=== PATIENT | male | born 1950 | race Caucasian/White ===

== ENCOUNTER 2017-05-27 10:24 | Inpatient (IN) | payer OTHER, MEDICARE ==
[~2017-05-27] VITALS: Ht 175.3 cm; Wt 91.9 kg
[2017-05-27] VITALS (7 sets, daily range): BP systolic 140–202; BP diastolic 85–106; PULSE 64–84; RESP 14–16; TEMP 97.7–99.4; O2SAT 97–100
[~2017-05-27 10:24] MED LIST: CLON.5; HYDR-3133; LACTATED RINGER'S 1000 ML INJ 3,000 ML IV ONE; NEOSTIGMINE 3 MG/3 ML SYR IV ONE; NORMOSOL R INJ 1,000 ML IV ONE; ONDANSETRON HCL 4 MG/2 ML VIAL IV PUSH ONE; PHENYLEPH/NS 1000 MCG/10 ML SYR IV ONE; PROPOFOL 200 MG/20 ML AMP IV ONE; TAB-TAB; WELL150T; ePHEDrine/NS 25 MG/5 ML SYR IV ONE
[2017-05-27] MEDS ORDERED: WELLTAB39 PO (10:49)
[2017-05-27] MEDS ORDERED: TIZA2CAP3 PO (10:49)
[2017-05-27] MEDS ORDERED: CLON.5 PO (10:49)
[2017-05-27] MEDS ORDERED: LISI2.5T3 PO (10:49)
[2017-05-27] MEDS ORDERED: ADDE25CA PO (10:49)
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
[2017-05-27] MEDS ORDERED: HYDROmorphone HCL PF 1 MG/ML VIAL IVS ONE (11:30)
[2017-05-27] MEDS ORDERED: ONDANSETRON HCL 4 MG/2 ML VIAL IVP ONE (11:30)
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
[2017-05-27 11:34] LABS: AUTOMATED NEUTROPHIL # 9.1 TH/MM3 (1.8-7.7); BASOPHIL # 0.1 TH/MM3 (0-0.2); BASOPHIL % 0.9 % (0.0-2.0); EOSINOPHIL # 0.2 TH/MM3 (0-0.4); HEMATOCRIT 42.3 % (39.0-51.0); HEMO FLAGS DIFF FINAL; LYMPH % 15.6 % (9.0-44.0); LYMPHOCYTE # 1.9 TH/MM3 (1.0-4.8); MEAN CELL VOLUME 93.4 FL (80.0-100.0); MEAN CORPUSCULAR HEMOGLOBIN 31.8 PG (27.0-34.0); NEUT % 74.5 % (16.0-70.0); PLATELET COUNT 218 TH/MM3 (150-450); RED BLOOD COUNT 4.52 MIL/MM3 (4.50-5.90); RED CELL DISTRIBUTION WIDTH 13.2 % (11.6-17.2); WHITE BLOOD COUNT 12.2 TH/MM3 (4.0-11.0)
[2017-05-27 11:56] LABS: BICARBONATE 25.5 MEQ/L (21.0-32.0); POTASSIUM 3.7 MEQ/L (3.5-5.1)
[2017-05-27] MEDS ORDERED: PHENYLEPHRINE HCL 10 MG/ML VIAL IV ONE (12:00)
[2017-05-27] MEDS ORDERED: NEOSTIGMINE 3 MG/3 ML SYR IV ONE (12:00)
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
[2017-05-27] MEDS ORDERED: THROMBIN (TOPICAL) 5,000 UNIT VIAL ONE (14:29)
[2017-05-27] MEDS ORDERED: MAGNESIUM HYDROXIDE SUSP 30 ML CUP PO PRN (14:30)
[2017-05-27] MEDS ORDERED: LIDOCAINE 1%/EPINEPHrine 1:100,000 SOLN 20 ML VIAL ONE (14:30)
[2017-05-27] MEDS ORDERED: GELFOAM SIZE 100 ONE (14:30)
[2017-05-27] MEDS ORDERED: CHLORHEXIDINE GLUCONATE 2 % 1 PACK (2 CLOTHS) TOP PRN ×2 (14:30→21:45)
[2017-05-27] MEDS ORDERED: GENTAMICIN SULFATE 80 MG/2 ML VIAL ONE (14:30)
[2017-05-27] MEDS ORDERED: PANTOPRAZOLE SODIUM 40 MG VIAL IV SCH (14:30)
[2017-05-27] MEDS ORDERED: MISCELLANEOUS NURSING INFORMATION XX SCH ×2 (14:30→21:45)
[2017-05-27] MEDS ORDERED: FAMOTIDINE 20 MG/2 ML VIAL ONE (14:44)
[2017-05-27] MEDS ORDERED: IOHEXOL 350 MG/ML 10 ML VIAL (for RAD DIAG) IV ONE (14:56)
[2017-05-27] MEDS ORDERED: ACETAMINOPHEN 1000 MG/100 ML VIAL IV ONE (15:00)
[2017-05-27] MEDS ORDERED: DEXAMETHASONE SOD PHOS 4 MG/ML VIAL ONE (15:00)
[2017-05-27] MEDS ORDERED: ARTIFICIAL TEARS OPTH OINT 3.5 APPLIC/3.5 GM TUBO ONE (15:00)
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
[2017-05-27] MEDS ORDERED: ceFAZolin INJ 1,000 MG VIAL IV ONE (16:50)
[2017-05-27] MEDS ORDERED: fentaNYL CITRATE 250 MCG/5 ML AMP ONE ×2 (17:03→17:07)
[2017-05-27] MEDS ORDERED: MIDAZOLAM HCL 2 MG/2 ML VIAL ONE (17:06)
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
[2017-05-27] MEDS: SODIUM CHLOR 0.9% 1000 ML INJ 1,000 ML IV SCH (20:20)
[2017-05-27] MEDS: PANTOPRAZOLE SODIUM 40 MG VIAL IV SCH (20:20)
--- NOTE | 2017-05-27 20:39 | PD.OP ---
Operative Report Date of Surgery: May 27, 2017 Preoperative Diagnosis: (1) Traumatic dislocation of facet joint between fifth and sixth cervical vertebrae (2) UNSP INJURY AT C6 LEVEL OF CERVICAL SPINAL CORD, INIT ENCNTR 1. Traumatic subluxation C5-C6 level 2. Left C5-6 jumped facet 3. Cervical cord contusion with quadriparesis Postoperative Diagnosis: (1) Traumatic dislocation of facet joint between fifth and sixth cervical vertebrae (2) UNSP INJURY AT C6 LEVEL OF CERVICAL SPINAL CORD, INIT ENCNTR 1. Traumatic subluxation C5-C6 level 2. Left C5-6 jumped facet 3. Cervical cord contusion with quadriparesis Procedure: 1. C5-6 anterior cervical discectomy, bilateral foraminotomy 2. Intraoperative reduction C5 6 subluxation with unilateral left C5 6 locked facet 3. C5-6 anterior interbody fusion with composite allograft bone 4. C5-6 anterior cervical instrumentation 5. Use of intraoperative fluoroscopy for intraoperative reduction C5 6 subluxation Anesthesia: Gen. Surgeon: Balaji Topete Light Bulb Assembler(s): Kane Amaya Operation and Findings: Findings: Total disruption of these anterior and posterior C5-6 longitudinal ligament. Extensive anterior cervical osteophyte. Procedure in detail: The patient was brought into the operating room and positioned in supine position on the 3080 table with the head and neck in neutral position. Rowland catheter was placed. Lines were established by Anesthesia. Gen. endotracheal anesthesia was induced without difficulty, taking care not to significantly flex or extend the patient's neck during intubation and positioning. Leads for intraoperative neuro monitoring were placed and a baseline study obtained. All extremities were appropriately padded. The neck and upper chest were shaved with clippers and sterilely prepped and draped. Appropriate timeout procedure was performed with all personnel present and in agreement 1% Xylocaine with epinephrine was used for local infiltration over the incision site which was made transversely at the left C5-6 level and carried sharply down through the platysma muscle. The exposure was continued medial to the sternocleidomastoid muscle and carotid artery, and lateral to the trachea and esophagus. The prevertebral fascia was elevated away from the anterior longitudinal ligament with a Kitner sponge. The longus coli muscle on each side was elevated with the Watson elevator. The self-retaining retractor was placed with the blades beneath the longus coli muscle on each side. The appropriate levels were confirmed with intraoperative C-arm and preoperative imaging studies. The microscope was brought into place and used for the remainder of the procedure including the closure. The 14 mm distraction pins were used as needed for gentle distraction during the procedure. The procedure was performed at the C5-6 level At C5-6 level the large anterior osteophyte was resected with the Leksell rongeur and TPS drill with the M8 bur. The disc and annulus anteriorly were totally torn and disrupted The disc and annulus was incised with a 15 blade knife and discectomy performed with pituitary biopsy forceps and straight and angled curettes. The TPS drill with the 5 mm barrel bur was used to decorticate the endplates and removed the majority of the osteophyte along the anterior spinal canal as well as the right and left uncovertebral joint. Next the undersigned reduced the left C5-6 locked facet using intraoperative C- arm and fluoroscopy imaging, with distraction and anterior and left lateral flexion initially applied to unlock the facet followed by rotation to the left and mild extension with subsequent release of tension. The locked facet reduced without difficulty. Attention was then turned back to the decompression portion of the procedure. The thin ligament dissector was used to free up the torn posterior annulus and ligament from the vertebral body margin. The annulus and ligament were resected with the thin footplate Kerrison rongeur. Significant posterior osteophyte was encountered and extensively removed. The posterior vertebral bodies were undercut with the Kerrison rongeur and the TPS drill with the 4 mm deanne bur as needed to fully decompress the anterior spinal canal. The appropriate size 7 x 9 mm V G2 bone graft was then placed at the C5-6 level with a good fit of the graft. The blunt nerve hook was used to probe beneath the bone graft to ensure that there was no impingement on the thecal sac or exiting nerve roots. The appropriate size Precision anterior cervical plate was then chosen and the bone screws were placed with the 16 mm fixed screws at the caudal most level and the 16 mm variable screws at the cephalad level of the decompression. The screws were firmly secured and the locking cams engaged. The entire construct was checked with intraoperative C-arm and felt to be satisfactory. The 10 Hebrew drain was brought out through a small incision in the left lower neck and secured to the skin with nylon suture and attached to sterile suction. The closure was performed with 3-0 Vicryl running for the platysma and interrupted for the subcutaneous closure, with 4-0 Vicryl running for the subcuticular closure. A dressing of sterile Mastisol, Steri-Strips, and Primapore dressing was placed. The patient was placed into a cervical collar, and taken to recovery room in stable condition. All counts were correct at the end of the case. Estimated blood loss was 200 No specimen was sent to pathology. Intraoperative neuro monitoring remained stable during the procedure. Balaji Topete MD May 27, 2017 20:39
[2017-05-27] MEDS ORDERED: DO NOT ADM ANY ANTICOAGULANT DRUGS PRN (20:45)
[2017-05-27] MEDS: DOCUSATE SODIUM 50 MG/SENNA 8.6 MG TAB PO SCH (21:00)
[2017-05-27] MEDS ORDERED: hydrALAZINE HCL 20 MG/ML VIAL ONE (21:02)
[2017-05-27] MEDS ORDERED: LABETALOL HCL 100 MG/20 ML VIAL IV PUSH ONE (21:30)
[2017-05-27] MEDS ORDERED: hydrALAZINE HCL 20 MG/ML VIAL IV PUSH PRN (21:30)
[2017-05-27] MEDS ORDERED: LABETALOL HCL 100 MG/20 ML VIAL IV PUSH PRN (21:30)
[2017-05-27] MEDS ORDERED: hydrALAZINE HCL 20 MG/ML VIAL IV PUSH ONE (21:30)
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
[2017-05-27] MEDS ORDERED: RESP: ALBUTEROL 2.5 MG/3 ML NEB (PRN) INH (21:45)
[2017-05-27] MEDS ORDERED: CLEVIDIPINE INJ 50 ML IV SCH (21:45)
[2017-05-27] MEDS ORDERED: ACETAMINOPHEN 325 MG TAB PO PRN (21:45)
[2017-05-27] MEDS ORDERED: ONDANSETRON HCL 4 MG/2 ML VIAL IV PRN (21:45)
[2017-05-27] MEDS ORDERED: SODIUM CHLORIDE 0.9% FLUSH 10 ML FLUSH IV FLUSH PRN (21:45)
[2017-05-27] MEDS: ACETAMINOPHEN/HYDROcodone 325 MG/5 MG TAB PO PRN (23:48)
[2017-05-28] VITALS (11 sets, daily range): BP systolic 139–176; BP diastolic 53–83; PULSE 65–74; RESP 10–19; TEMP 98.2–99.3; O2SAT 96–100
[2017-05-28] MEDS: MORPHINE SULFATE 4 MG/ML INJ IV PRN ×6 (00:42→18:00)
[2017-05-28] MEDS: SODIUM CHLOR 0.9% 1000 ML INJ 1,000 ML IV SCH ×3 (00:43→20:27)
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
[2017-05-28] MEDS: LABETALOL HCL 100 MG/20 ML VIAL IV PUSH PRN ×6 (03:00→23:32)
[2017-05-28] MEDS: CHLORHEXIDINE GLUCONATE 2 % 1 PACK (2 CLOTHS) TOP SCH ×2 (03:28)
[2017-05-28 04:22] LABS: AUTOMATED NEUTROPHIL # 12.1 TH/MM3 (1.8-7.7); BASOPHIL % 0.1 % (0.0-2.0); HEMATOCRIT 38.8 % (39.0-51.0); HEMO FLAGS DIFF FINAL; LYMPHOCYTE # 0.8 TH/MM3 (1.0-4.8); MEAN CELL VOLUME 95.1 FL (80.0-100.0); MEAN CORPUSCULAR HEMOGLOBIN 32.1 PG (27.0-34.0); MEAN CORPUSCULAR HGB CONC 33.7 % (32.0-36.0); MONO % 5.7 % (0.0-8.0); NEUT % 88.2 % (16.0-70.0); PLATELET COUNT 183 TH/MM3 (150-450); RED BLOOD COUNT 4.08 MIL/MM3 (4.50-5.90); RED CELL DISTRIBUTION WIDTH 13.5 % (11.6-17.2); WHITE BLOOD COUNT 13.8 TH/MM3 (4.0-11.0)
[2017-05-28 04:47] LABS: ANION GAP 10 MEQ/L (5-15); AST (GOT) 34 U/L (15-37); BICARBONATE 23.5 MEQ/L (21.0-32.0); BLOOD UREA NITROGEN 17 MG/DL (7-18); CHLORIDE 107 MEQ/L (98-107); GLOMERULAR FILTRATION RATE 63 ML/MIN (>89); MAGNESIUM 1.9 MG/DL (1.5-2.5); SODIUM (NA) 140 MEQ/L (136-145)
[2017-05-28 04:53] LABS: ALKALINE PHOSPHATASE 58 U/L (45-117); ALT (GPT) 28 U/L (12-78); TOTAL BILIRUBIN ADULT 0.7 MG/DL (0.2-1.0)
--- NOTE | 2017-05-28 04:57 | RADRPT ---
EXAM DATE/TIME: 05/28/2017 04:46 [place] COMPARISON: CT BRAIN W/O CONTRAST, May 27, 2017, 11:19. INDICATIONS : Follow-up hemorrhage. RADIATION DOSE: 44.16 CTDIvol (mGy) MEDICAL HISTORY : Hypertension. SURGICAL HISTORY : TURP. ENCOUNTER: Subsequent ACUITY: 1 day PAIN SCALE: Non-responsive LOCATION: cranial TECHNIQUE: Multiple contiguous axial images were obtained of the head. Using automated exposure control and adj ustment of the mA and/or kV according to patient size, radiation dose was kept as low as reasonably a chievable to obtain optimal diagnostic quality images. DICOM format image data is available electro nically for review and comparison. FINDINGS: There is mild atrophy and patchy periventricular white matter disease again noted. There is a small p arenchymal bleed in the right frontal periventricular white matter with trace surrounding edema again noted. There are no fractures or acute infarct. No masses. CONCLUSION: No significant change has occurred. Amos Rubio MD on May 28, 2017 at 4:54 Board Certified Radiologist. This report was verified electronically.
[2017-05-28] MEDS ORDERED: MAGNESIUM SULFATE 1 GM PREMIX 100 ML IV ONE (05:15)
[2017-05-28] MEDS: hydrALAZINE HCL 20 MG/ML VIAL IV PUSH PRN ×7 (05:49→22:30)
[2017-05-28] MEDS: ONDANSETRON HCL 4 MG/2 ML VIAL IV PRN ×4 (06:09→20:27)
[2017-05-28] MEDS: DOCUSATE SODIUM 50 MG/SENNA 8.6 MG TAB PO SCH ×2 (08:29→20:26)
[2017-05-28] MEDS: PANTOPRAZOLE SODIUM 40 MG VIAL IV SCH (08:30)
[2017-05-28] MEDS: buPROPion HCL 150 MG EXTENDED RELEASE TAB PO SCH (08:52)
[2017-05-28] MEDS ORDERED: PANTOPRAZOLE SODIUM 40 MG VIAL IV SCH (09:00)
[2017-05-28] MEDS: SODIUM CHLORIDE 0.9% FLUSH 10 ML FLUSH IV FLUSH SCH ×2 (09:00→20:27)
[2017-05-28] MEDS: POLYETHYLENE GLYCOL 17 GM PKG PO SCH (09:00)
[2017-05-28] MEDS ORDERED: LISINOPRIL 5 MG TAB PO SCH (09:00)
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
[2017-05-28] MEDS: ACETAMINOPHEN/HYDROcodone 325 MG/5 MG TAB PO PRN (11:58)
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
[2017-05-28] MEDS ORDERED: LISINOPRIL 5 MG TAB PO ONE (19:45)
[2017-05-28] MEDS: HYDROmorphone HCL PF 1 MG/ML VIAL IV PUSH PRN (22:01)
[2017-05-29] VITALS (10 sets, daily range): BP systolic 159–189; BP diastolic 73–86; PULSE 64–77; RESP 12–20; TEMP 97.5–99.1; O2SAT 95–99
[2017-05-29] MEDS ORDERED: MORPHINE SULFATE 4 MG/ML INJ IV PRN
[2017-05-29] MEDS: hydrALAZINE HCL 20 MG/ML VIAL IV PUSH PRN ×3 (01:30→05:44)
[2017-05-29] MEDS: ONDANSETRON HCL 4 MG/2 ML VIAL IV PRN (02:23)
[2017-05-29] MEDS: HYDROmorphone HCL PF 1 MG/ML VIAL IV PUSH PRN ×2 (02:24→10:46)
[2017-05-29] MEDS: LABETALOL HCL 100 MG/20 ML VIAL IV PUSH PRN ×3 (02:45→06:18)
[2017-05-29] MEDS: CHLORHEXIDINE GLUCONATE 2 % 1 PACK (2 CLOTHS) TOP SCH ×2 (03:54)
[2017-05-29] MEDS: SODIUM CHLOR 0.9% 1000 ML INJ 1,000 ML IV SCH (03:55)
[2017-05-29 04:42] LABS: HEMATOCRIT 38.5 % (39.0-51.0); MEAN CELL VOLUME 94.2 FL (80.0-100.0); MEAN CORPUSCULAR HEMOGLOBIN 32.1 PG (27.0-34.0); MEAN CORPUSCULAR HGB CONC 34.1 % (32.0-36.0); PLATELET COUNT 168 TH/MM3 (150-450); RED BLOOD COUNT 4.09 MIL/MM3 (4.50-5.90); RED CELL DISTRIBUTION WIDTH 13.4 % (11.6-17.2); REVIEW FLAG FINAL; WHITE BLOOD COUNT 17.1 TH/MM3 (4.0-11.0)
[2017-05-29 05:06] LABS: BICARBONATE 23.5 MEQ/L (21.0-32.0)
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
[2017-05-29] MEDS: DOCUSATE SODIUM 50 MG/SENNA 8.6 MG TAB PO SCH ×2 (08:37→22:23)
[2017-05-29] MEDS: hydrALAZINE HCL 50 MG TAB PO SCH ×2 (08:37→15:33)
[2017-05-29] MEDS: buPROPion HCL 150 MG EXTENDED RELEASE TAB PO SCH (08:37)
[2017-05-29] MEDS: PANTOPRAZOLE SODIUM 40 MG VIAL IV SCH (08:37)
[2017-05-29] MEDS ORDERED: LISINOPRIL 10 MG TAB PO SCH (09:00)
[2017-05-29] MEDS: GABAPENTIN 300 MG CAP PO SCH ×2 (09:00→22:22)
[2017-05-29] MEDS: POLYETHYLENE GLYCOL 17 GM PKG PO SCH (09:00)
[2017-05-29] MEDS: SODIUM CHLORIDE 0.9% FLUSH 10 ML FLUSH IV FLUSH SCH ×2 (09:00→22:23)
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
[2017-05-29] MEDS ORDERED: SOD PHOSPHATE/SOD BIPHOSPHATE (ADULT) ENEMA 133ML RECTAL PRN (09:15)
[2017-05-29] MEDS ORDERED: DEXAMETHASONE SOD PHOS 4 MG/ML VIAL IV PUSH PRN (09:30)
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
[2017-05-29] MEDS: LISINOPRIL 10 MG TAB PO SCH (22:23)
[2017-05-29] MEDS: clonazePAM 0.5 MG TAB PO SCH (22:23)
[2017-05-29] MEDS: ACETAMINOPHEN/HYDROcodone 325 MG/5 MG TAB PO PRN (22:37)
[2017-05-30] VITALS (7 sets, daily range): BP systolic 157–199; BP diastolic 83–99; PULSE 66–81; RESP 17–20; TEMP 98.2–99.1; O2SAT 93–98
[2017-05-30] MEDS: hydrALAZINE HCL 50 MG TAB PO SCH ×3 (00:55→15:47)
[2017-05-30] MEDS: SODIUM CHLOR 0.9% 1000 ML INJ 1,000 ML IV SCH ×2 (02:32→21:32)
[2017-05-30] MEDS: ACETAMINOPHEN/HYDROcodone 325 MG/5 MG TAB PO PRN ×3 (04:57→21:31)
[2017-05-30] MEDS: DOCUSATE SODIUM 50 MG/SENNA 8.6 MG TAB PO SCH ×2 (07:53→21:31)
[2017-05-30] MEDS: clonazePAM 0.5 MG TAB PO SCH ×2 (07:54→21:31)
[2017-05-30] MEDS: LISINOPRIL 10 MG TAB PO SCH (07:54)
[2017-05-30] MEDS: FAMOTIDINE 20 MG TAB PO SCH ×2 (07:54→21:31)
[2017-05-30] MEDS: buPROPion HCL 150 MG EXTENDED RELEASE TAB PO SCH (07:54)
[2017-05-30] MEDS: GABAPENTIN 300 MG CAP PO SCH ×2 (07:54→21:31)
[2017-05-30] MEDS: SODIUM CHLORIDE 0.9% FLUSH 10 ML FLUSH IV FLUSH SCH ×2 (07:54→21:32)
[2017-05-30] MEDS: POLYETHYLENE GLYCOL 17 GM PKG PO SCH (07:54)
[2017-05-30] MEDS: HYDROmorphone HCL PF 1 MG/ML VIAL IV PUSH PRN (08:03)
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
[2017-05-30] MEDS ORDERED: SENNOSIDES 8.6 MG TAB PO PRN (13:15)
[2017-05-30] MEDS ORDERED: MAGNESIUM HYDROXIDE SUSP 30 ML CUP PO PRN (13:15)
[2017-05-30] MEDS ORDERED: hydrALAZINE HCL 20 MG/ML VIAL IV PRN (13:15)
[2017-05-30] MEDS ORDERED: LACTULOSE SYRUP 20 GM/30 ML CUP PO PRN (13:15)
[2017-05-30] MEDS ORDERED: ENALAPRILAT 1.25 MG/ML VIAL IV PRN (13:15)
[2017-05-30 16:57] LABS: BACTERIA, URINE MANY /hpf; BLOOD, URINE SMALL (NEG); GLUCOSE,URINE NEG (NEG); KETONE, URINE 10 mg/dL (NEG); MUCUS URINE FEW /lpf (OCC); NITRITE,URINE NEG (NEG); PH, URINE 6.5 (5.0-8.5); SQUAMOUS EPITHELIAL CELL URINE 3 /hpf (0-5); URINE COLOR YELLOW (YELLW/STRAW)
[2017-05-30] MEDS: cloNIDine HCL 0.1 MG TAB PO PRN (17:00)
[2017-05-30 17:05] LABS: COMMENT (UR) CATH-CULTURE IND; CULTURE IF INDICATED CATH CULTURE IND
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
[2017-05-30] MEDS: LISINOPRIL 20 MG TAB PO SCH ×2 (17:39→21:31)
[2017-05-31] MEDS: hydrALAZINE HCL 50 MG TAB PO SCH ×2 (00:29→07:56)
[2017-05-31 01:33] VITALS: BP 136/81; PULSE 70; RESP 20; TEMP 99.3; O2SAT 94
[2017-05-31 03:24] VITALS: BP 169/91; PULSE 72; RESP 18; TEMP 97.9; O2SAT 96
[2017-05-31] MEDS: ACETAMINOPHEN/HYDROcodone 325 MG/5 MG TAB PO PRN ×3 (03:26→12:25)
[2017-05-31] MEDS: cloNIDine HCL 0.1 MG TAB PO PRN (03:26)
[2017-05-31] MEDS: clonazePAM 0.5 MG TAB PO SCH (07:55)
[2017-05-31] MEDS: DOCUSATE SODIUM 50 MG/SENNA 8.6 MG TAB PO SCH (07:55)
[2017-05-31] MEDS: FAMOTIDINE 20 MG TAB PO SCH (07:55)
[2017-05-31] MEDS: GABAPENTIN 300 MG CAP PO SCH (07:56)
[2017-05-31] MEDS: buPROPion HCL 150 MG EXTENDED RELEASE TAB PO SCH (07:56)
[2017-05-31] MEDS: LISINOPRIL 20 MG TAB PO SCH (07:56)
[2017-05-31] MEDS: SODIUM CHLORIDE 0.9% FLUSH 10 ML FLUSH IV FLUSH SCH (07:57)
[2017-05-31] MEDS: POLYETHYLENE GLYCOL 17 GM PKG PO SCH (07:57)
[2017-05-31 08:00] VITALS: BP 150/87; PULSE 67; RESP 20; TEMP 97.7; O2SAT 96
[2017-05-31 08:46] LABS: AUTOMATED NEUTROPHIL # 10.5 TH/MM3 (1.8-7.7); BASOPHIL # 0.1 TH/MM3 (0-0.2); BASOPHIL % 0.5 % (0.0-2.0); EOSINOPHIL # 0.1 TH/MM3 (0-0.4); EOSINOPHIL % 0.6 % (0.0-4.0); HEMATOCRIT 36.5 % (39.0-51.0); HEMO FLAGS DIFF FINAL; LYMPH % 12.6 % (9.0-44.0); LYMPHOCYTE # 1.7 TH/MM3 (1.0-4.8); MEAN CORPUSCULAR HEMOGLOBIN 32.6 PG (27.0-34.0); MONO % 10.1 % (0.0-8.0); NEUT % 76.2 % (16.0-70.0); PLATELET COUNT 162 TH/MM3 (150-450); RED BLOOD COUNT 3.93 MIL/MM3 (4.50-5.90); RED CELL DISTRIBUTION WIDTH 13.3 % (11.6-17.2); WHITE BLOOD COUNT 13.8 TH/MM3 (4.0-11.0)
[2017-05-31] MEDS ORDERED: DEXTROAMPHETAMINE/AMPHETAMINE XR 10 MG CAP PO SCH (09:00)
[2017-05-31] MEDS ORDERED: DEXTROAMPHETAMINE/AMPHETAMINE XR 15 MG CAP PO SCH (09:00)
[2017-05-31] MEDS ORDERED: AMPHETAMINE DEXTROAMPHETAMINE 25 MG PO SCH (09:00)
[2017-05-31 09:15] LABS: ANION GAP 5 MEQ/L (5-15); AST (GOT) 26 U/L (15-37); BICARBONATE 26.4 MEQ/L (21.0-32.0); BLOOD UREA NITROGEN 23 MG/DL (7-18); CHLORIDE 102 MEQ/L (98-107); GLOMERULAR FILTRATION RATE 106 ML/MIN (>89); POTASSIUM 3.7 MEQ/L (3.5-5.1); SODIUM (NA) 133 MEQ/L (136-145)
[2017-05-31 09:16] LABS: ALT (GPT) 26 U/L (12-78)
[2017-05-31 09:18] LABS: ALKALINE PHOSPHATASE 55 U/L (45-117); TOTAL BILIRUBIN ADULT 1.1 MG/DL (0.2-1.0)
[2017-05-31 10:16] VITALS: O2SAT 97
[2017-05-31] MEDS ORDERED: NEUR300C PO (10:38)
[2017-05-31] MEDS ORDERED: HYDR-3800 PO (10:38)
[2017-05-31] MEDS ORDERED: TAMS5CAP PO (10:38)
[2017-05-31] MEDS ORDERED: SENN1TAB PO (10:38)
[2017-05-31] MEDS ORDERED: ALBU0.08 INH (10:38)
[2017-05-31] MEDS ORDERED: AMLO10 PO (10:38)
[2017-05-31] MEDS ORDERED: CIPR250T52 PO (10:38)
[2017-05-31] MEDS ORDERED: POLY17S PO (10:38)
[2017-05-31] MEDS ORDERED: LISI-515 PO (10:38)
[2017-05-31] MEDS ORDERED: HYDR-3516 PO (11:25)
[2017-05-31] MEDS ORDERED: MAGNESIUM CITRATE SOLN 300 ML BTL PO ONE (11:30)
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
[2017-05-31] MEDS ORDERED: ENOX40P SQ (11:35)
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
[2017-05-31 12:00] VITALS: BP 123/76; PULSE 76; RESP 18; TEMP 98.2; O2SAT 98
[2017-05-31] MEDS ORDERED: PIPERACIL-TAZO 3.375 GM PREMIX 50 ML IV SCH (12:00)
[2017-05-31] MEDS ORDERED: ENOXAPARIN SODIUM 40 MG/0.4 ML SYRINGE SQ SCH (12:00)
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
--- NOTE | 2017-05-31 14:20 | EKG ---
Date Performed: 05/30/2017 Time Performed: 20:09:39 PTAGE: 66 years EKG: ECTOPIC ATRIAL RHYTHM WITH OCCASIONAL SUPRAVENTRICULAR PREMATURE COMPLEXES RIGHT BUNDLE BRA NCH BLOCK ABNORMAL ECG PREVIOUS TRACING : 03/05/2006 13.41 Since previous tracing, the right bundle branch block is ne w and the ectopic atrial rhythm is new. DOCTOR: Yaya Solano Interpretating Date/Time 05/31/2017 14:18:17
[2017-05-31] MEDS ORDERED: TAMSULOSIN HCL 0.4 MG CAP PO SCH (21:00)
[2017-06-02 10:06] LABS: HEMOGLOBIN A1a 1.1 %; HEMOGLOBIN A1b 0.8 %; HEMOGLOBIN Ao 85.8 %; HEMOGLOBIN LA1C 1.8 %; HEMOGLOBIN P3 3.8 %
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
== END 2017-05-31 14:01 | DRG 957 ==
LOC: NEPC 10:24 → NEDA 14:02 → N03A 20:56 → N05A 05-29 18:18
PROVIDERS: ADMIT Surgery Trauma Surgery; ATTEND Surgery Trauma Surgery
PROC: 0RT30ZZ Resection of Cervical Vertebral Disc, Open Approach (ICD-10-PCS; 2017-05-27)
PROC: 0RS Upper Joints, Reposition (ICD-10-PCS; 2017-05-27)
PROC: 0RG10K0 Fusion of Cervical Vertebral Joint with Nonautologous Tissue Substitute, Anterior Approach, Anterior Column, Open Approach (ICD-10-PCS; principal; 2017-05-27 15:42)
DX: S14.105A Unspecified injury at C5 level of cervical spinal cord, initial encounter (principal); G82.50 Quadriplegia, unspecified; S06.310A Contusion and laceration of right cerebrum without loss of consciousness, initial encounter; S13.160A Subluxation of C5/C6 cervical vertebrae, initial encounter; S13.161A Dislocation of C5/C6 cervical vertebrae, initial encounter; V49.49XA Driver injured in collision with other motor vehicles in traffic accident, initial encounter; Y92.410 Unspecified street and highway as the place of occurrence of the external cause; I10 Essential (primary) hypertension; F98.8 Other specified behavioral and emotional disorders with onset usually occurring in childhood and adolescence; F32.9 Major depressive disorder, single episode, unspecified; F41.9 Anxiety disorder, unspecified; F12.90 Cannabis use, unspecified, uncomplicated; M25.78 Osteophyte, vertebrae
CPT/HCPCS: 70450; 70498; 71010; 71260; 72040; 72125; 73030; 74177; 76000; 80048; 80053; 81001; 83036; 83735; 84100; 85025; 85027; 87077; 87086; 87186; 87641; 93005; 94150; 96374; 96375; C1713; C9113; J0131; J0360; J0690; J1100; J1170; J1580; J1650; J2250; J2270; J2370; J2405; J2543; J2710; J3010; J3475; J7030; J7120; L0172; Q9967

== ENCOUNTER 2017-08-16 17:33 | Emergency (ER) | payer MEDICARE ==
[~2017-08-16] VITALS: Ht 175.3 cm; Wt 87.0 kg
[~2017-08-16 17:33] MED LIST changes: +ADDE25CA PO; +ARTH650T6 PO; +BETH10 PO; +BISA10SU3 RECTAL; +BUPR150CR PO; -CLON.5; +Calcium Carbonate Chew CHEW; +DULC10SU3 RECTAL; +FINA5TAB2 PO; -HYDR-3133; +HYDR-3516 PO; -LACTATED RINGER'S 1000 ML INJ 3,000 ML IV ONE; +LISI10TA3 PO; +MILKSUS PO; -NEOSTIGMINE 3 MG/3 ML SYR IV ONE; +NEUR300C PO; -NORMOSOL R INJ 1,000 ML IV ONE; +NU-I150C PO; -ONDANSETRON HCL 4 MG/2 ML VIAL IV PUSH ONE; +PANT40TA3 PO; -PHENYLEPH/NS 1000 MCG/10 ML SYR IV ONE; +POLY17S PO; -PROPOFOL 200 MG/20 ML AMP IV ONE; +SENN1TAB PO; -TAB-TAB; +TAMS5CAP PO; +TUCKSPAD TOPICAL; -WELL150T; -ePHEDrine/NS 25 MG/5 ML SYR IV ONE
[2017-08-16 17:55] VITALS: BP 188/87; PULSE 51; RESP 16; O2SAT 99
[2017-08-16 18:05] VITALS: BP 188/87; PULSE 47; RESP 20; O2SAT 99
[2017-08-16] MEDS ORDERED: LISI40TA PO ×2 (18:27)
[2017-08-16] MEDS ORDERED: WELLTAB39 PO ×2 (18:27)
[2017-08-16] MEDS ORDERED: NEUR100C PO ×2 (18:27)
[2017-08-16] MEDS ORDERED: COLA100C PO ×2 (18:27)
[2017-08-16] MEDS ORDERED: TUMS500C PO ×2 (18:27)
[2017-08-16] MEDS ORDERED: MIRA3350 PO ×2 (18:27)
--- NOTE | 2017-08-16 18:52 | PD ---
HPI Chief Complaint: Fall Time Seen by Provider: 19:01 Travel History International Travel<30 days: No Contact w/Intl Traveler<30days: No Traveled to known affect area: No History of Present Illness HPI 66 YO M presents to the ED for evaluation of 10/10 right shoulder pain. Onset just before arrival after the patient fell while attempting to get into the car. Patient endorses hitting his head. Denies loss of consciousness. Pain is worsened by attempted range of motion. Patient denies numbness, tingling. On presentation he denies headache, dizziness, vision changes, chest pain, palpitations, shortness of breath. He states that he recently had a cervical fusion with Dr. Topete and is wearing a c-collar until he has a follow-up appointment. He states his last tetanus shot was within the "last year or so." PFS Past Medical History ADD: Yes Arthritis: No Asthma: No Autoimmune Disease: No Anxiety: Yes Depression: Yes Heart Rhythm Problems: No Cancer: No Cardiovascular Problems: Yes High Cholesterol: Yes Chemotherapy: No Chest Pain: No Congestive Heart Failure: No COPD: No Diabetes: No Endocrine: No GERD: No Genitourinary: Yes (enlarged prostate) Hiatal Hernia: No Hypertension: Yes Immune Disorder: No Kidney Stones: No Musculoskeletal: Yes Neurologic: No Psychiatric: No Reproductive: No Respiratory: No Radiation Therapy: No Renal Failure: No Sleep Apnea: No Thyroid Disease: No Ulcer: No Influenza Vaccination: No Past Surgical History Abdominal Surgery: No Cardiac Surgery: No Ear Surgery: No Endocrine Surgery: No Eye Surgery: No Genitourinary Surgery: Yes (TURP) Gynecologic Surgery: No Neurologic Surgery: Yes (neck) Oral Surgery: No Thoracic Surgery: No Social History Alcohol Use: No (Patient denies) Tobacco Use: No Substance Use: Yes (smokes marijuana daily) Allergies-Medications (Allergen,Severity, Reaction): Coded Allergies: No Known Allergies (Verified , 08/16/17) Reported Meds & Prescriptions Reported Meds & Active Scripts Active Finasteride 5 Mg Tab 5 Mg PO DAILY Do not crush. Flomax (Tamsulosin HCl) 0.4 Mg Cap 0.4 Mg PO HS 14 Days Adderall Xr 24 HR (Amphetamine-Dextroamphetamine ER 24 HR) 25 Mg Cap 25 Mg PO DAILY 14 Days Once daily in the morning. Reported Colace (Docusate Sodium) 100 Mg Capsule 100 Mg PO DAILY PRN Tums (Calcium Carbonate (Antacid)) 500 Mg Chew 500 Mg PO Q6HR PRN Miralax Powder (Polyethylene Glycol 3350 Powder) 17 Gm Powd 17 Gm PO BID Mix and dissolve one measuring cap-ful (17 grams) in water or juice. Lisinopril 40 Mg Tab 40 Mg PO DAILY IN TH AM Neurontin (Gabapentin) 100 Mg Cap 100 Mg PO TID Wellbutrin Xl 24 HR (Bupropion HCl) 300 Mg Tab 300 Mg PO DAILY Urecholine (Bethanechol Chloride) 10 Mg Tab 10 Mg PO Q4HR While Awake Lisinopril 10 Mg Tab 10 Mg PO DAILY IN THE PM Review of Systems Except as stated in HPI: all other systems reviewed are Neg Physical Exam Narrative GENERAL: Well-nourished, well-developed white male in no acute distress. SKIN: Focused skin assessment warm/dry. Abrasion and 2 cm laceration over the right eyebrow. Abrasion of the right elbow. HEAD: Normocephalic. EYES: No scleral icterus. No injection or drainage. PERRLA. EOMI. NECK: Supple, trachea midline. No JVD or lymphadenopathy. CARDIOVASCULAR: Regular rate and rhythm without murmurs, gallops, or rubs. RESPIRATORY: Breath sounds clear and equal bilaterally. No accessory muscle use. GASTROINTESTINAL: Abdomen soft, non-tender, nondistended. Active bowel sounds. MUSCULOSKELETAL: No cyanosis, or edema. FOCUSED RIGHT UPPER EXTREMITY EXAM: 2+ radial pulse. Strong cooperative education director strength. Sensation is intact to light touch distally. Range of motion of the shoulder deferred secondary to pain. No tenderness to palpation of the before acromioclavicular joint, collarbone. NEUROLOGICAL: Awake and alert. Cranial nerves II through XII intact. Motor and sensory grossly within normal limits. Five out of 5 muscle strength in all testable muscle groups. Normal speech. BACK: Deferred secondary to the patient's shoulder pain. Data Data Last Documented VS Vital Signs Date Time Temp Pulse Resp B/P (MAP) Pulse Ox O2 Delivery O2 Flow Rate FiO2 08/16/17 23:33 08/16/17 20:40 51 18 98 Nasal Cannula 2.[address] Brain W/O Iv Contrast(Rout) (08/16/17 18:52) Ice/Cold Pack (08/16/17 18:52) Iv Access Insert/Monitor (08/16/17 19:01) Ecg Monitoring (08/16/17 19:01) Oximetry (08/16/17 19:01) Ondansetron Inj (Zofran Inj) (08/16/17 19:15) Sodium Chloride 0.9% Flush (Ns Flush) (08/16/17 19:15) Hydromorphone Pf Inj (Dilaudid Pf Inj) (08/16/17 19:15) Ct Cerv Spine W/O Contrast (08/16/17 ) Lidocaine 1% Inj (50 Ml) (Xylocaine 1% I (08/16/17 19:15) Shoulder, Limited(2vws) (08/16/17 18:54) Hydromorphone Pf Inj (Dilaudid Pf Inj) (08/16/17 19:45) Propofol 200 Mg/20 Ml Inj (Diprivan 200 (08/16/17 19:45) Sling And Swathe (08/16/17 ) Shoulder, Limited(2vws) (08/16/17 20:45) Sling And Swathe (08/16/17 ) Acetaminophen (Tylenol) (08/16/17 22:00) Ed Discharge Order (08/16/17 21:47) MDM Medical Decision Making Medical Screen Exam Complete: Yes Emergency Medical Condition: Yes Differential Diagnosis Laceration versus abrasion versus skull fracture versus cervical spinal subluxation versus shoulder fracture versus shoulder dislocation versus other Narrative Course 66 YO M presents to the ED for evaluation of 10/10 right shoulder pain. Onset just before arrival after the patient fell while attempting to get into the car. Patient endorses hitting his head. Denies loss of consciousness. Pain is worsened by attempted range of motion. Patient denies numbness, tingling, headache, dizziness, vision changes, chest pain, palpitations, shortness of breath. He states that he recently had a cervical fusion with Dr. Topete and is wearing a c-collar until he has a follow-up appointment. Tetanus immunization UTD. Vitals reviewed. Patient is hypertensive on presentation, I suspect this is related to pain. Physical exam reveals an alert white male in no acute distress. There is a 2 cm laceration over the right eyebrow with some facial abrasions and abrasion of the right elbow. The right shoulder is nontender but the patient is unable to tolerate any attempted ROM. He has palpable pulses at the right wrist and a strong cooperative education director strength. IV was established. Patient was administered 0.5 milligram of Dilaudid and 4 mg of Zofran IV. CT brain: Normal for patient this age. CT cervical spine: Fusion at C4 5 with reduction of previous spondylolisthesis. No new subluxation or spondylolisthesis per radiology read. X-ray right shoulder: Anterior dislocation. Reduction was performed. Please see my procedure note for details. Laceration repair was performed. Please see my procedure note for details. Patient was provided detailed wound care and follow-up instructions. He indicated understanding of the instructions. He has good follow-up planned early next week and a good support system at home to help care for his needs. He stable and discharged home. Procedures Procedure Narrative REDUCTION OF ANTERIOR DISLOCATION RIGHT SHOULDER: IV conscious sedation was administered by Dr. Lindquist. Patient was sedated to appropriate level. Slight traction and external rotation was applied to the right shoulder. A palpable pop was noted. Adduction of the shoulder normal on exam. Sling and swath applied. Post reduction films reveal pentecostal of anatomical position, degenerative changes of the acromioclavicular joint per radiology revealed LACERATION REPAIR: LOCATION: Right eyebrow LENGTH: 2 cm stellate NUMBER OF STITCHES/MARIA A: 5 REPAIR: The area of the laceration was prepped with Betadine and sterilely draped. The laceration was infiltrated with 1% lidocaine. The wound was copiously irrigated and explored without evidence of foreign body, tendon injury or neurovascular injury. The wound was closed using 4-0 Prolene. This was a single layer repair. A sterile dressing was applied. The patient was advised to keep the dressing clean and dry. Patient tolerated the procedure well. Diagnosis Primary Impression: Fall from standing Qualified Codes: W19.XXXA - Unspecified fall, initial encounter Additional Impressions: Multiple abrasions Laceration of face without complication Qualified Codes: S01.81XA - Laceration without foreign body of other part of head, initial encounter Anterior dislocation of right shoulder Qualified Codes: S43.014A - Anterior dislocation of right humerus, initial encounter Referrals: Balaji Topete MD,Vincenzo Olvera MD Primary Care Physician Patient Instructions: Care For Your Stitches (ED), General Instructions, Shoulder Dislocation (ED), Shoulder Dislocation Exercises (GEN) Additional Instructions: Rest, hydrate. You may bathe normally and allow water to run over the wound. Do not submerge the wound. After bathing pat of wound dry. Allow the wound to air dry for 10-15 minutes. Apply a thin layer of antibiotic ointment and a clean, dry dressing. Utilize [id number] pain medications, as described on the label, as needed. Monitor for signs of infection and return if they occur as discussed. Suture removal in 5-7 days. Do not remove the sling until evaluated by the orthopedist. Follow-up with your primary care, neurologist and the orthopedist as discussed. Return to the ED for any urgent or emergent medical condition. Med/Other Pt SpecificInfo: Prescription(s) given Disposition: 01 DISCHARGE HOME Condition: Stable Bel Larios Aug 16, 2017 18:52
[2017-08-16] MEDS ORDERED: ONDANSETRON HCL 4 MG/2 ML VIAL IVP ONE ×2 (19:15)
[2017-08-16] MEDS ORDERED: LIDOCAINE HCL 1% 50 ML VIAL INFIL ONE ×2 (19:15)
[2017-08-16] MEDS ORDERED: SODIUM CHLORIDE 0.9% FLUSH 10 ML FLUSH IV FLUSH PRN ×2 (19:15)
[2017-08-16] MEDS ORDERED: HYDROmorphone HCL PF 1 MG/ML VIAL IVS ONE ×4 (19:15→19:45)
--- NOTE | 2017-08-16 19:24 | RADRPT ---
EXAM DATE/TIME: 08/16/2017 19:15 [facility] COMPARISON: CT BRAIN W/O CONTRAST, June 06, 2017, 12:24. INDICATIONS : Trauma; fall. RADIATION DOSE: 39.71 CTDIvol (mGy) MEDICAL HISTORY : Cardiovascular disease. Hypertension. SURGICAL HISTORY : None. ENCOUNTER: Initial ACUITY: 1 day PAIN SCALE: 7/10 LOCATION: cranial TECHNIQUE: Multiple contiguous axial images were obtained of the head. Using automated exposure control and adj ustment of the mA and/or kV according to patient size, radiation dose was kept as low as reasonably a chievable to obtain optimal diagnostic quality images. DICOM format image data is available electro nically for review and comparison. FINDINGS: CEREBRUM: The ventricles are normal for age. No evidence of midline shift, mass lesion, hemorrhage or acute in farction. No extra-axial fluid collections are seen. POSTERIOR FOSSA: The cerebellum and brainstem are intact. The 4th ventricle is midline. The cerebellopontine angle i s unremarkable. EXTRACRANIAL: The visualized portion of the orbits is intact. SKULL: The calvaria is intact. No evidence of skull fracture. CONCLUSION: Normal examination for a patient of this age. Ruben Villa MD on August 16, 2017 at 19:22 Board Certified Radiologist. This report was verified electronically.
[2017-08-16 19:34] VITALS: BP 231/105; PULSE 53; RESP 18; O2SAT 97
[2017-08-16] MEDS ORDERED: PROPOFOL 200 MG/20 ML AMP IV ONE ×2 (19:45)
--- NOTE | 2017-08-16 19:47 | RADRPT ---
EXAM DATE/TIME: 08/16/2017 19:24 [facility] COMPARISON: No previous studies available for comparison. INDICATIONS : Pain from fall. MEDICAL HISTORY : None. SURGICAL HISTORY : None. ENCOUNTER: Initial ACUITY: 1 day PAIN SCORE: 10/10 LOCATION: Right shoulder. FINDINGS: There is anterior dislocation of the right humeral head. No associated fracture. Advanced arthropathy of the right a.c. joint. CONCLUSION: 1. Anterior dislocation of the right shoulder. Ruben Villa MD on August 16, 2017 at 19:43 Board Certified Radiologist. This report was verified electronically.
--- NOTE | 2017-08-16 19:54 | RADRPT ---
EXAM DATE/TIME: 08/16/2017 19:15 [facility] COMPARISON: No previous studies available for comparison. INDICATIONS : Trauma; fall. RADIATION DOSE: 21.44 CTDIvol (mGy) MEDICAL HISTORY : Cardiovascular disease. Hypertension. SURGICAL HISTORY : cervical fusion ENCOUNTER: Initial ACUITY: 1 day PAIN SCALE: 7/10 LOCATION: neck TECHNIQUE: Volumetric scanning of the cervical spine was performed. Multiplanar reconstructions in the sagittal, coronal and oblique axial planes were performed. Using automated exposure control and adjustment o f the mA and/or kV according to patient size, radiation dose was kept as low as reasonably achievable to obtain optimal diagnostic quality images. DICOM format image data is available electronically f or review and comparison. FINDINGS: Patient is now status post anterior plate and screw fixation across C5-6 with reduction of previous s pondylolisthesis. There is some persistent mild subluxation at the left-sided facet joint. Right face t joint normally aligned. No acute fracture or spondylolisthesis. No significant bony canal stenosis. Diffuse idiopathic skelet al hyperostosis. CONCLUSION: 1. Previous fusion at C5-6 with reduction of previous spondylolisthesis. No new fracture or spondylol isthesis. Ruben Villa MD on August 16, 2017 at 19:47 Board Certified Radiologist. This report was verified electronically.
[2017-08-16 20:40] VITALS: BP 188/86; PULSE 51; RESP 18; O2SAT 98; O2SAT 99
--- NOTE | 2017-08-16 21:14 | PD ---
Data Data Last Documented VS Vital Signs Date Time Temp Pulse Resp B/P (MAP) Pulse Ox O2 Delivery O2 Flow Rate FiO2 08/16/17 19:34 53 18 231/105 (147) 97 Room Air Orders Orders Ct Brain W/O Iv Contrast(Rout) (08/16/17 18:52) Ice/Cold Pack (08/16/17 18:52) Iv Access Insert/Monitor (08/16/17 19:01) Ecg Monitoring (08/16/17 19:01) Oximetry (08/16/17 19:01) Ondansetron Inj (Zofran Inj) (08/16/17 19:15) Sodium Chloride 0.9% Flush (Ns Flush) (08/16/17 19:15) Hydromorphone Pf Inj (Dilaudid Pf Inj) (08/16/17 19:15) Ct Cerv Spine W/O Contrast (08/16/17 ) Lidocaine 1% Inj (50 Ml) (Xylocaine 1% I (08/16/17 19:15) Shoulder, Limited(2vws) (08/16/17 18:54) Hydromorphone Pf Inj (Dilaudid Pf Inj) (08/16/17 19:45) Propofol 200 Mg/20 Ml Inj (Diprivan 200 (08/16/17 19:45) Sling And Swathe (08/16/17 ) Shoulder, Limited(2vws) (08/16/17 20:45) Sling And Swathe (08/16/17 ) MDM Supervised Visit with LAURE: Yes Narrative Course The history, exam, and medical decision-making in the associated mid-level provider note were completed with my assistance. I reviewed and agree with the findings presented. I attest that I had a [id number] encounter with the patient on the same day, and personally performed and documented my assessment and findings in the medical record. *My assessment and Findings: 66-year-old man, presents with following a fall. Recent neck surgery. Head and neck CTs are negative. His a right shoulder dislocation. This was reduced by myself and FABIOLA Mcdonald. Patient tolerated well. His caregiver expressed some concern about him going home. He was discharged from the hospital months ago and was in acute rehabilitation followed by Brian. Patient feels that he safe at home. He's been walking up and down stairs without difficulty. Cannot really describe why he fell however. I do not think patient has indications for admission to the hospital. Recommend outpatient follow-up. Procedures Procedure Narrative After the risks and benefits were discussed the following procedure was performed: MODERATE SEDATION: The patient was placed on a electrical assembly technician and pulse oximetry. An ambu bag and suction was immediately available at bedside. The patient was monitored by the nurse. Oxygen saturation, heart rate and blood pressure were monitored. Procedural sedation was acheived using 70 mg of propofol. The patient was observed until awake and alert. Procedural Sedation time in attendance was 35 minutes. Diagnosis Primary Impression: Fall from standing Qualified Codes: W19.XXXA - Unspecified fall, initial encounter Additional Impressions: Multiple abrasions Laceration of face without complication Qualified Codes: S01.81XA - Laceration without foreign body of other part of head, initial encounter Anterior dislocation of right shoulder Qualified Codes: S43.014A - Anterior dislocation of right humerus, initial encounter Referrals: Balaji Topete MD Primary Care Physician Patient Instructions: General Instructions, Shoulder Dislocation Exercises (GEN ), Care For Your Stitches (ED), Shoulder Dislocation (ED) Disposition: 01 DISCHARGE HOME Condition: Stable Juancarlos Lindquist MD Aug 16, 2017 21:14
--- NOTE | 2017-08-16 21:21 | RADRPT ---
EXAM DATE/TIME: 08/16/2017 21:00 [facility] COMPARISON: No previous studies available for comparison. INDICATIONS : Post reduction for dislocation. MEDICAL HISTORY : None. SURGICAL HISTORY : None. ENCOUNTER: Initial ACUITY: 1 day PAIN SCORE: 4/10 LOCATION: Right shoulder. FINDINGS: Previous anterior dislocation has been reduced. Advanced arthropathy of the right a.c. joint. No acut e fracture. CONCLUSION: 1. Reduction of previous dislocation. Advanced arthropathy of the right a.c. joint. Ruben Villa MD on August 16, 2017 at 21:18 Board Certified Radiologist. This report was verified electronically.
[2017-08-16] MEDS ORDERED: ACETAMINOPHEN 325 MG TAB PO ONE ×2 (22:00)
== END 2017-08-16 23:34 | disposition home or self-care (01) ==
LOC: NEPE 17:33
DX: S01.81XA Laceration without foreign body of other part of head, initial encounter (principal); S43.014A Anterior dislocation of right humerus, initial encounter; S50.311A Abrasion of right elbow, initial encounter; S00.81XA Abrasion of other part of head, initial encounter; F41.9 Anxiety disorder, unspecified; F32.9 Major depressive disorder, single episode, unspecified; E78.00 Pure hypercholesterolemia, unspecified; I10 Essential (primary) hypertension; V89.9XXA Person injured in unspecified vehicle accident, initial encounter
CPT/HCPCS: 12011; 23650; 70450; 72125; 73030; 96374; 96375; 99285; J1170; J2405

== ENCOUNTER 2017-08-23 13:40 | Emergency (ER) | payer MEDICARE ==
[~2017-08-23] VITALS: Ht 177.8 cm; Wt 88.5 kg
[~2017-08-23 13:40] MED LIST changes: -ARTH650T6 PO; -BISA10SU3 RECTAL; -BUPR150CR PO; +COLA100C5 PO; -Calcium Carbonate Chew CHEW; -DULC10SU3 RECTAL; -HYDR-3516 PO; +LISI40TA PO; -MILKSUS PO; +MIRA3350 PO; +NEUR100C PO; -NEUR300C PO; -NU-I150C PO; -PANT40TA3 PO; -POLY17S PO; -SENN1TAB PO; -TUCKSPAD TOPICAL; +TUMS500C PO; +WELLTAB39 PO
[2017-08-23 13:41] VITALS: BP 169/108; PULSE 69; RESP 16; TEMP 98.4; O2SAT 97
--- NOTE | 2017-08-23 15:48 | PD ---
HPI Chief Complaint: Musculoskeletal Complaint Time Seen by Provider: 15:14 Travel History International Travel<30 days: No Contact w/Intl Traveler<30days: No Traveled to known affect area: No History of Present Illness HPI 66-year-old male presents to the emergency room for evaluation of right arm pain for the past week. Patient had a fall from standing 1 week ago, on August 16, and came to the emergency room. He was found to have a right shoulder dislocation. His shoulder was reduced in the ED and he was discharged with sling. Patient had follow-up x-ray in home yesterday. His primary care physician's nurse called him today and told him to go straight to the emergency room for orthopedic consultation because of a fracture in his shoulder or arm ( patient is unsure of which). Patient reports continued pain but no worsening of symptoms. He has right upper extremity paresthesias that have been constant since his cervical spine fusion in May. He was on his way to see his neurosurgeon, Dr. Topete, when his PCP called him and told him not to go to neurosurgeon but to come to the ED because of his arm. States when it is in the sling and not moving, the pain is not severe. PFSH Past Medical History ADD: Yes Arthritis: No Asthma: No Autoimmune Disease: No Anxiety: Yes Depression: Yes Heart Rhythm Problems: No Cancer: No Cardiovascular Problems: Yes High Cholesterol: Yes Chemotherapy: No Chest Pain: No Congestive Heart Failure: No COPD: No Diabetes: No Endocrine: No GERD: No Genitourinary: Yes (enlarged prostate) Hiatal Hernia: No Hypertension: Yes Immune Disorder: No Kidney Stones: No Musculoskeletal: Yes Neurologic: No Psychiatric: No Reproductive: No Respiratory: No Radiation Therapy: No Renal Failure: No Sleep Apnea: No Thyroid Disease: No Ulcer: No Past Surgical History Abdominal Surgery: No Cardiac Surgery: No Ear Surgery: No Endocrine Surgery: No Eye Surgery: No Genitourinary Surgery: Yes (TURP) Gynecologic Surgery: No Neurologic Surgery: Yes (neck) Oral Surgery: No Thoracic Surgery: No Social History Alcohol Use: No (Patient denies) Tobacco Use: No Substance Use: Yes (smokes marijuana daily) Allergies-Medications (Allergen,Severity, Reaction): Coded Allergies: No Known Allergies (Verified Adverse Reaction, Unknown, 08/23/17) Reported Meds & Prescriptions Reported Meds & Active Scripts Active Finasteride 5 Mg Tab 5 Mg PO DAILY Do not crush. Flomax (Tamsulosin HCl) 0.4 Mg Cap 0.4 Mg PO HS 14 Days Adderall Xr 24 HR (Amphetamine-Dextroamphetamine ER 24 HR) 25 Mg Cap 25 Mg PO DAILY 14 Days Once daily in the morning. Reported Colace (Docusate Sodium) 100 Mg Capsule 100 Mg PO DAILY PRN Tums (Calcium Carbonate (Antacid)) 500 Mg Chew 500 Mg PO Q6HR PRN Miralax Powder (Polyethylene Glycol 3350 Powder) 17 Gm Powd 17 Gm PO BID Mix and dissolve one measuring cap-ful (17 grams) in water or juice. Lisinopril 40 Mg Tab 40 Mg PO DAILY IN TH AM Neurontin (Gabapentin) 100 Mg Cap 100 Mg PO TID Wellbutrin Xl 24 HR (Bupropion HCl) 300 Mg Tab 300 Mg PO DAILY Urecholine (Bethanechol Chloride) 10 Mg Tab 10 Mg PO Q4HR While Awake Lisinopril 10 Mg Tab 10 Mg PO DAILY IN THE PM Review of Systems Except as stated in HPI: all other systems reviewed are Neg Physical Exam Narrative GENERAL: Well-nourished, well-developed male in no acute distress. Afebrile. Ambulatory. In sling. SKIN: Focused skin assessment warm/dry. HEAD: Normocephalic. EYES: No scleral icterus. No injection or drainage. NECK: Supple, trachea midline. No JVD or lymphadenopathy. CARDIOVASCULAR: Regular rate and rhythm without murmurs, gallops, or rubs. RESPIRATORY: Breath sounds equal bilaterally. No accessory muscle use. MUSCULOSKELETAL: No cyanosis. Mild to moderate edema of the right shoulder. No obvious deformity. 2+ radial pulse. Limited range of motion secondary to pain. Data Data Last Documented VS Vital Signs Date Time Temp Pulse Resp B/P (MAP) Pulse Ox O2 Delivery O2 Flow Rate FiO2 08/23/17 13:41 98.4 69 16 169/108 (128) 97 Orders Orders Shoulder, Limited(2vws) (08/23/17 ) Humerus (Min 2vws) (08/23/17 ) MDM Medical Decision Making Medical Screen Exam Complete: Yes Emergency Medical Condition: Yes Medical Record Reviewed: Yes Differential Diagnosis Fracture, dislocation, contusion, spasm Narrative Course 66-year-old male presents to the emergency room ferguson of right shoulder and upper extremity pain. Patient states he was on his way to see his neurosurgeon when his primary care physician called him and told him to come directly to the emergency room because his right arm is broken and he needed orthopedic consultation. No trauma or injury. He was seen in the emergency room one week ago for dislocation of the shoulder and had postreduction x-rays that showed normal anatomic alignment. He had follow-up x-rays in his house yesterday and PCPs nurse called him today with the results of his x-rays stating that he needed to come directly to the emergency room. Patient reports persistent paresthesias since having spinal fusion in May. Denies any worsening pain. He is in a sling after shoulder reduction one week ago. Right upper extremity is neurovascularly intact with 2+ radial pulse. There is moderate tenderness to palpation of the shoulder. No obvious dislocation or deformity. Moderate edema of the shoulder. Moderate ecchymosis of the humerus. I attempted to contact the patient's primary care physician that there is no return call. Patient was agreeable to repeat x-rays of the shoulder and humerus. X-rays show nondisplaced fracture of the greater tuberosity. No emergent indications orthopedic consultation at this time. Patient was reassured and told to follow up with his primary care physician for outpatient MRI to evaluate for rotator cuff injury. Recommend follow-up with orthopedist within 1 week. Told to return for worsening symptoms. Patient declined pain medication. He understands and agrees to plan. Diagnosis Primary Impression: Greater tuberosity of humerus fracture Qualified Codes: S42.254A - Nondisplaced fracture of greater tuberosity of right humerus, initial encounter for closed fracture Referrals: Danie Palacio MD Primary Care Physician Additional Instructions: Rest and drink plenty of fluids. The sling until follow-up. Take Tylenol as directed, as needed for pain. Apply ice to the affected area for 20 minutes at a time, as needed for pain and swelling. Follow-up with PCP for outpatient MRI and orthopedist next week. Return to the emergency room for worsening symptoms. Med/Other Pt SpecificInfo: Prescription(s) given Disposition: 01 DISCHARGE HOME Condition: Stable Daxa Roman Aug 23, 2017 15:48
--- NOTE | 2017-08-23 17:23 | RADRPT ---
EXAM DATE/TIME: 08/23/2017 16:52 [facility] COMPARISON: SHOULDER RIGHT LTD (2VWS), August 16, 2017, 21:00. INDICATIONS : Patient complains of shoulder pain status post fall last week. MEDICAL HISTORY : None. SURGICAL HISTORY : None. ENCOUNTER: Initial ACUITY: 1 day PAIN SCORE: 5/10 LOCATION: Right [place] FINDINGS: Extensive degenerative changes are evident at the AC joint. Fractures are appreciated. Alignment an atomic. Lung apex is clear. CONCLUSION: Degenerative changes, negative for fracture. Leonardo Vera MD FACR on August 23, 2017 at 17:21 Board Certified Radiologist. This report was verified electronically.
--- NOTE | 2017-08-23 17:24 | RADRPT ---
EXAM DATE/TIME: 08/23/2017 17:01 [facility] COMPARISON: No previous studies available for comparison. INDICATIONS : Patient complains of right humerus pain status post fall 1 week ago. MEDICAL HISTORY : None. SURGICAL HISTORY : None. ENCOUNTER: Initial ACUITY: 1 week PAIN SCORE: 5/10 LOCATION: Right Humerus FINDINGS: There is a nondisplaced fracture of the greater tuberosity seen best on humeral films. Degenerative changes at the AC joint. Remaining humerus is intact. CONCLUSION: Nondisplaced fracture greater tuberosity. Leonardo Vera MD FACR on August 23, 2017 at 17:21 Board Certified Radiologist. This report was verified electronically.
== END 2017-08-23 18:18 | disposition home or self-care (01) ==
LOC: NEPD 13:40
DX: S42.254A Nondisplaced fracture of greater tuberosity of right humerus, initial encounter for closed fracture (principal); F98.8 Other specified behavioral and emotional disorders with onset usually occurring in childhood and adolescence; F41.9 Anxiety disorder, unspecified; E78.00 Pure hypercholesterolemia, unspecified; I10 Essential (primary) hypertension; W19.XXXA Unspecified fall, initial encounter; Z79.899 Other long term (current) drug therapy
CPT/HCPCS: 73030; 73060; 99283

== ENCOUNTER 2018-03-01 09:58 | Emergency (ER) | payer MEDICARE, OTHER ==
[2018-03-01 10:06] VITALS: BP 167/86; PULSE 84; RESP 16; TEMP 98.5; O2SAT 98
--- NOTE | 2018-03-01 10:43 | PD ---
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 Topete at that time, undergoing ongoing outpatient physical therapy, here for evaluation after falling a physical therapy 2 days ago with head injury. The patient reports that he was placing his cane down in the corner of the building when he fell forward and struck his head against the wall. He then tried to get up and fell forward once again, striking his head a second time. He denies LOC. He reports that last night he noticed worsening neck pain and stiffness, and believes he may have worsening tingling/numbness to his bilateral arms and legs. He feels as though his legs may be a little bit more weak than usual, however his upper extremity strength appears to be at his new baseline. PFSH Past Medical History ADD: Yes Arthritis: No Asthma: No Autoimmune Disease: No Anxiety: Yes Depression: Yes Heart Rhythm Problems: No Cancer: No Cardiovascular Problems: Yes High Cholesterol: Yes Chemotherapy: No Chest Pain: No Congestive Heart Failure: No COPD: No Diabetes: No Endocrine: No GERD: No Genitourinary: Yes (enlarged prostate) Hiatal Hernia: No Hypertension: Yes Immune Disorder: No Kidney Stones: No Musculoskeletal: Yes Neurologic: No Psychiatric: No Reproductive: No Respiratory: No Radiation Therapy: No Renal Failure: No Sleep Apnea: No Thyroid Disease: No Ulcer: No Past Surgical History Abdominal Surgery: No Cardiac Surgery: No Ear Surgery: No Endocrine Surgery: No Eye Surgery: No Genitourinary Surgery: Yes (TURP) Gynecologic Surgery: No Neurologic Surgery: Yes (neck) Oral Surgery: No Thoracic Surgery: No Social History Alcohol Use: No Tobacco Use: No Substance Use: No Allergies-Medications (Allergen,Severity, Reaction): Coded Allergies: No Known Allergies (Verified Adverse Reaction, Unknown, 08/23/17) Reported Meds & Prescriptions Reported Meds & Active Scripts Active Finasteride 5 Mg Tab 5 Mg PO DAILY Do not crush. Flomax (Tamsulosin HCl) 0.4 Mg Cap 0.4 Mg PO HS 14 Days Adderall Xr 24 HR (Amphetamine-Dextroamphetamine ER 24 HR) 25 Mg Cap 25 Mg PO DAILY 14 Days Once daily in the morning. Reported Colace (Docusate Sodium) 100 Mg Capsule 100 Mg PO DAILY PRN Tums (Calcium Carbonate (Antacid)) 500 Mg Chew 500 Mg PO Q6HR PRN Miralax Powder (Polyethylene Glycol 3350 Powder) 17 Gm Powd 17 Gm PO BID Mix and dissolve one measuring cap-ful (17 grams) in water or juice. Lisinopril 40 Mg Tab 40 Mg PO DAILY IN TH AM Neurontin (Gabapentin) 100 Mg Cap 100 Mg PO TID Wellbutrin Xl 24 HR (Bupropion HCl) 300 Mg Tab 300 Mg PO DAILY Urecholine (Bethanechol Chloride) 10 Mg Tab 10 Mg PO Q4HR While Awake Lisinopril 10 Mg Tab 10 Mg PO DAILY IN THE PM Review of Systems Except as stated in HPI: all other systems reviewed are Neg Physical Exam Narrative GENERAL: Well-developed, well-nourished, awake, alert, GCS 15, no apparent distress. SKIN: Focused skin assessment warm/dry. No lacerations, abrasions, or ecchymosis. HEAD: Atraumatic. Normocephalic. EYES: Pupils equal and round. No scleral icterus. No injection or drainage. ENT: Mucous membranes pink and moist. NECK: Trachea midline. No JVD. No midline cervical spine step-off or tenderness. CARDIOVASCULAR: Regular rate and rhythm. RESPIRATORY: No accessory muscle use. Clear to auscultation. Breath sounds equal bilaterally. GASTROINTESTINAL: Abdomen soft, non-tender, nondistended. MUSCULOSKELETAL: Atrophy to flexor muscles in bilateral hands. No clubbing. No cyanosis. No edema. NEUROLOGICAL: Awake and alert. No obvious cranial nerve deficits. Motor grossly within normal limits. Normal speech. Muscle strength 5-5 in bilateral upper extremities. Muscle strength 5 out of 5 in bilateral lower extremities. PSYCHIATRIC: Appropriate mood and affect; insight and judgment normal. Data Data Last Documented VS Vital Signs Date Time Temp Pulse Resp B/P (MAP) Pulse Ox O2 Delivery O2 Flow Rate FiO2 03/01/18 10:06 98.5 84 16 167/86 (113) [address] Brain W/O Iv Contrast(Rout) (03/01/18 ) Ct Cerv Spine W/O Contrast (03/01/18 ) MDM Medical Decision Making Medical Screen Exam Complete: Yes Emergency Medical Condition: Yes Differential Diagnosis Intracranial trauma, cervical strain, cervical spine injury Narrative Course CT head: CONCLUSION: Negative for an acute traumatic injury CT cervical spine: CONCLUSION: No evidence of fracture or dislocation. Stable degenerative changes with multilevel severe neural foraminal stenosis.. Patient has baseline numbness/tingling to his arms and legs, and he believes it may be slightly worse since he fell 2 days ago. There are no focal deficits. He walked to the restroom with a cane without assistance. Patient has normal muscle strength in all 4 extremities. At this point he is stable for discharge home with outpatient follow-up. He has an appointment with Dr. Topete next month. He was advised on when to return to the emergency department. He verbalizes understanding and agreement with plan. Diagnosis Primary Impression: Fall Qualified Codes: W19.XXXA - Unspecified fall, initial encounter Additional Impressions: Closed head injury Qualified Codes: S09.90XA - Unspecified injury of head, initial encounter Cervical strain Qualified Codes: S16.1XXA - Strain of muscle, fascia and tendon at neck level , initial encounter Referrals: Balaji Topete MD Primary Care Physician 3 days Additional Instructions: Follow-up with your primary care physician this week. Follow-up with Dr. Topete as scheduled. Return to the emergency department for worsening symptoms or any other concerns. Disposition: 01 DISCHARGE HOME Condition: Stable Kalpesh Gannon MD March 01, 2018 10:43
--- NOTE | 2018-03-01 12:06 | RADRPT ---
EXAM DATE/TIME: 03/01/2018 11:45 [facility] COMPARISON: CT BRAIN W/O CONTRAST, August 16, 2017, 19:15. INDICATIONS : Fell forward and hit head, previous cervical fracture in 2017. RADIATION DOSE: 56.35 CTDIvol (mGy) MEDICAL HISTORY : Cardiovascular disease. Hypertension. SURGICAL HISTORY : Fusion, cervical. ENCOUNTER: Initial ACUITY: 1 day PAIN SCALE: 4/10 LOCATION: cranial TECHNIQUE: Multiple contiguous axial images were obtained of the head. Using automated exposure control and adjustment of the mA and/or kV according to patient size, radiation dose was kept as low as reasonably achievable to obtain optimal diagnostic quality images. DICOM format image data is av ailable electronically for review and comparison. FINDINGS: CEREBRUM: The ventricles are normal for age. No evidence of midline shift, mass lesion, hemorrha ge or acute infarction. No extra-axial fluid collections are seen. POSTERIOR FOSSA: The cerebellum and brainstem are intact. The 4th ventricle is midline. The cer ebellopontine angle is unremarkable. EXTRACRANIAL: The visualized portion of the orbits is intact. SKULL: The calvaria is intact. No evidence of skull fracture. CONCLUSION: Negative for an acute traumatic injury Leonardo Vera MD FACR on March 01, 2018 at 12:03 Board Certified Radiologist. This report was verified electronically.
--- NOTE | 2018-03-01 12:29 | RADRPT ---
EXAM DATE/TIME: 03/01/2018 11:45 [facility] COMPARISON: CT CERVICAL SPINE W/O CONTRAST, August 16, 2017, 19:15. INDICATIONS : Fell forward and hit head, previous cervical fracture in 2017. RADIATION DOSE: 19.19 CTDIvol (mGy) MEDICAL HISTORY : Cardiovascular disease. Hypertension. SURGICAL HISTORY : Fusion, cervical. ENCOUNTER: Initial ACUITY: 1 day PAIN SCALE: 4/10 LOCATION: neck TECHNIQUE: Volumetric scanning of the cervical spine was performed. Multiplanar reconstructions in the sagittal, coronal and oblique axial planes were performed. Using automated exposure control and adjustment o f the mA and/or kV according to patient size, radiation dose was kept as low as reasonably achievable to obtain optimal diagnostic quality images. DICOM format image data is available electronically f or review and comparison. FINDINGS: The cervical spine demonstrates fusion anteriorly at C5/C6. There appears to be complete incorporatio n of the intervertebral disc graft. 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 The vertebral bodies maintain normal height and mineralization. There is normal cervic al alignment. No evidence of fracture or dislocation. Stable severe facet degenerative changes and uncovertebral joint degenerative changes resulting in mu ltilevel severe neural foraminal stenosis. Adjacent soft tissues are intact. CONCLUSION: No evidence of fracture or dislocation. Stable degenerative changes with multilevel severe neural for aminal stenosis.. Melba Mock MD on March 01, 2018 at 12:19 Board Certified Radiologist. This report was verified electronically.
== END 2018-03-01 13:18 | disposition home or self-care (01) ==
LOC: NEPE 09:58
DX: S09.90XA Unspecified injury of head, initial encounter (principal); S16.1XXA Strain of muscle, fascia and tendon at neck level, initial encounter; F41.8 Other specified anxiety disorders; E78.00 Pure hypercholesterolemia, unspecified; I10 Essential (primary) hypertension; W19.XXXA Unspecified fall, initial encounter
CPT/HCPCS: 70450; 72125

== ENCOUNTER 2018-07-03 01:28 | Inpatient (IN) ==
--- NOTE | 2018-07-03 01:39 | ED ---
HPI General Chief Complaint: Fall Stated Complaint: Fall Time Seen by Provider: 07/03/18 01:35 Source: patient Mode of arrival: EMS Limitations: no limitations History of Present Illness HPI Narrative: 67-year-old man with history of high blood pressure and BP age who presents for the third time this week to this emergency department for evaluation after a ground-level mechanical fall at home. He was just seen in this department on 07/02/18 and 07/01/18 for falls as well. He lives at home and has no family to assist him to watch him. It is unclear how this fall occurred but he fell forward onto his face. Uncertain if there was loss of consciousness. After the fall he started vomiting and is still retching. He has no upper or lower extremity pain or deformity. He has some head pain but denies neck pain. He denies chest pain or shortness of breath. This was not a syncopal event per patient's account. No seizure activity, tongue biting, or urinary incontinence. Related Data Home Medications Medication Instructions Recorded Confirmed ascorbic acid (vitamin C) [Vitamin 1,000 mg PO DAILY 07/01/18 07/01/18 C] bupropion HCl [Wellbutrin XL] 300 mg PO QAM 07/01/18 07/01/18 cholecalciferol (vitamin D3) 1,000 unit PO DAILY 07/01/18 07/01/18 [Vitamin D3] cholecalciferol (vitamin D3) 1,000 unit PO DAILY 07/01/18 07/01/18 [Vitamin D3] ferrous sulfate [Iron (ferrous 65 mg PO DAILY 07/01/18 07/01/18 sulfate)] finasteride 5 mg PO DAILY 07/01/18 07/01/18 hydrochlorothiazide 25 mg PO DAILY 07/01/18 07/01/18 lisinopril 40 mg PO DAILY 07/01/18 07/01/18 meloxicam 15 mg PO DAILY 07/01/18 07/01/18 polyethylene glycol 3350 [Miralax] 1 g/kg PO DAILY 07/01/18 07/01/18 tamsulosin 0.4 mg PO DAILY 07/01/18 07/01/18 vit B complex-folic acid [B 1 tab PO DAILY 07/01/18 07/01/18 Complex 100] vitamin E 400 unit PO DAILY 07/01/18 07/01/18 Allergies Allergy/AdvReac Type Severity Reaction Status Date / Time No Known Allergies Allergy Verified 07/03/18 01:48 Review of Systems ROS: all other systems reviewed are negative [facility] Medical History Medical History Erectile dysfunction (Acute) High blood pressure (Acute) Metal plate in upper extremity (Acute) Social History Social History Substance History: No History of Abuse Second Hand Smoke Exposure: No Smoking Status: Never smoker How Often Do You Have a Drink Containing Alcohol: Never Recent Travel in [facility] within the Last 8 Weeks: No Recent Out of Country Travel within the Last 8 Weeks: No Exam Narrative Exam Narrative: GENERAL: 67-year-old man lying on exam stretcher holding an emesis bag. He is spitting into it and retching from time to time. No companions present at bedside at time of exam. SKIN: Focused skin assessment warm/dry. Facial lacerations repaired with Prolene suture. HEAD: Atraumatic. Normocephalic. Facial lacerations which are sutured with Prolene. There is periorbital swelling about the left eye. EYES: Pupils equal and round. No scleral icterus. No injection or drainage. Normal extraocular motion with full upward gaze in both eyes. ENT: No nasal bleeding or discharge. Mucous membranes pink and moist. NECK: Trachea midline. No JVD. No midline cervical tenderness. CARDIOVASCULAR: Regular rate and rhythm. No murmur appreciated. 2+ radial artery pulses bilaterally. 2+ DP and 2+ PT pulses bilaterally. RESPIRATORY: No accessory muscle use. Clear to auscultation. Breath sounds equal bilaterally. GASTROINTESTINAL: Retching and spitting into an emesis bag. Abdomen soft, non- tender, nondistended. MUSCULOSKELETAL: No obvious deformities. No clubbing. No cyanosis. No edema. Normal painless range of motion of all joints of bilateral upper and bilateral lower extremities. NEUROLOGICAL: Awake and alert. No obvious cranial nerve deficits. Motor grossly within normal limits. Patient not willing to speak due to nausea and retching. PSYCHIATRIC: Patient is calm but unable to fully assess due to his reluctance to speak. Course Reevaluation(s) Reevaluation #1: Patient still continued to spit thick mucus. When asked he denies feeling nauseated and denies abdominal pain. His abdomen is soft and benign at this time. Ordered abdominal films to evaluate for possible obstruction. Time: 02:54 Reevaluation #2: Patient's mucous secretions decreased. He ate some food and was able to hold it down without vomiting. With assistance he was able to ambulate to the bathroom. He believes that his friends can give him a ride home. He has 2 walkers at home. Time: 04:33 Initial Documented Vital Signs Temperature 98.1 F 07/03/18 01:40 Pulse Rate 66 07/03/18 01:40 Respiratory Rate 16 07/03/18 01:40 Blood Pressure 166/91 H 07/03/18 01:40 Pulse Oximetry 95 07/03/18 01:40 Last Documented Vital Signs Temperature 98.1 F 07/03/18 01:40 Pulse Rate 66 07/03/18 01:40 Respiratory Rate 16 07/03/18 01:40 Blood Pressure 166/91 H 07/03/18 01:40 Pulse Oximetry 95 07/03/18 01:40 Medical Decision Making MDM Narrative Medical decision making narrative: 67-year-old man brought to ED for a fall. This is his third fall in 3 days. He lives alone in a two-story house and typically uses a walker to ambulate. Will perform CT head and cervical spine to evaluate for intracranial bleeding and cervical spine fracture or skull fracture. Will x-ray chest and pelvis to evaluate for fracture. Check labs for evidence of a medical precipitant. If all normal and patient able to ambulate, will likely send home. Medical Screen Exam Complete: Yes Emergency Medical Condition: Yes Medical Records Medical records reviewed: Yes I reviewed the patient's medical records. Third fall in 3 days to result in transport to emergency department for the patient. Lab Data Lab results reviewed: Yes I reviewed the patient's lab results. Lab results narrative: Significant WBC count of undetermined significance. Possibly secondary to stress or trauma. Result diagrams: 07/03/18 01:43 Lab Results 07/03/18 07/03/18 07/03/18 Range/Units 01:43 01:43 01:43 WBC 23.4 H (4.0-11.0) th/mm3 RBC 5.17 (4.50-5.90) mil/mm3 Hgb 16.9 D (13.0-17.0) gm/dL Hct 49.3 (39.0-51.0) % MCV 95.4 (80.0-100.0) fL MCH 32.6 (27.0-34.0) pg MCHC 34.2 (32.0-36.0) % RDW 13.2 (11.6-17.2) % Plt Count 260 (150-450) th/mm3 MPV 7.2 (7.0-11.0) fL Neut % (Auto) 88.2 H (16.0-70.0) % Lymph % (Auto) 5.0 L (9.0-44.0) % [place] % (Auto) 6.6 (0.0-8.0) % Eos % (Auto) 0.0 (0.0-4.0) % Baso % (Auto) 0.2 (0.0-2.0) % Neut # (Auto) 20.7 H (1.8-7.7) th/mm3 Lymph # (Auto) 1.2 (1.0-4.8) th/mm3 [place] # (Auto) 1.5 H (0.0-0.9) th/mm3 Eos # (Auto) 0.0 (0.0-0.4) th/mm3 Baso # (Auto) 0.1 (0.0-0.2) th/mm3 WBC Differential . Differential Comment Auto diff final PT 10.5 (9.8-11.6) sec INR 1.0 Ratio Troponin I 0.09 H (0.02-0.05) ng/mL Serum Alcohol Less than 3 (0-5) mg/dL Imaging Data Radiologist's impression: Cervical Spine CT 07/03/18 01:35 CONCLUSION: 1. No acute fracture or spondylolisthesis. Previous fusion at C5-6. Head CT 07/03/18 01:35 CONCLUSION: 1. No acute findings. . Chest X-Ray 07/03/18 01:36 CONCLUSION: Negative examination. Pelvis X-Ray 07/03/18 01:36 CONCLUSION: No acute findings. Osteoarthritis of the bilateral hips. Abdomen X-Ray 07/03/18 02:52 CONCLUSION: No acute findings. Mild ileus. Advanced degenerative change in the lumbar spine. Abdomen X-Ray 09/13/18 02:52 CONCLUSION: No acute findings. No free free air. ECG Data Attestation: I personally reviewed and interpreted this ECG as follows: Interpretation: Normal axis, normal rate, no ST segment changes, not a STEMI. Discharge Plan Discharge Disposition Patient Disposition: 30 Still Patient Discharge Condition Condition: Stable Discharge Details Diagnosis: Elevated troponin I level, Frequent falls, Fall from ground level Physicians Team ED Provider: Maico Andrade Primary Care Provider: Anatoliy Her Attending Provider: Alfie Peacock Other Providers: Aileena,Humankatie Status ED Status: Admitted Patient
[2018-07-03] MEDS ORDERED: Sod Chloride 0.9% Inj 1,000 ML IV.CONT SCH (01:45)
[2018-07-03 01:56] LABS: Baso # (Auto) 0.1 th/mm3 (0.0-0.2); Baso % (Auto) 0.2 % (0.0-2.0); Hematocrit 49.3 % (39.0-51.0); Hemoglobin 16.9 gm/dL (13.0-17.0); Lymph # (Auto) 1.2 th/mm3 (1.0-4.8); Mean Corpuscular HGB Conc 34.2 % (32.0-36.0); Mean Corpuscular Hemoglobin 32.6 pg (27.0-34.0); Mean Corpuscular Volume 95.4 fL (80.0-100.0); Mean Platelet Volume 7.2 fL (7.0-11.0); Mono # (Auto) 1.5 th/mm3 (0.0-0.9); Mono % (Auto) 6.6 % (0.0-8.0); Neut # (Auto) 20.7 th/mm3 (1.8-7.7); Neut % (Auto) 88.2 % (16.0-70.0); Platelet Count 260 th/mm3 (150-450); Red Blood Count 5.17 mil/mm3 (4.50-5.90); Red Cell Distribution Width 13.2 % (11.6-17.2); White Blood Count 23.4 th/mm3 (4.0-11.0)
[2018-07-03 02:03] LABS: Prothrombin Time 10.5 sec (9.8-11.6)
[2018-07-03 02:17] LABS: Troponin I 0.09 ng/mL (0.02-0.05)
--- NOTE | 2018-07-03 02:28 | CT ---
EXAM DATE: 07/03/2018 2:24 AM EDT AGE/SEX: 67 years / Male INDICATIONS: Trauma; head injury. CLINICAL DATA: This is the patient's initial encounter. Patient reports that signs and symptoms have been present for 1 day and indicates a pain score of 4/10. MEDICAL/SURGICAL HISTORY: Hypertension. Fusion, cervical. RADIATION DOSE: 61.64 CTDI (mGy) COMPARISON: [facility] – [place], CT HEAD W/O CONTRAST, 07/01/2018. . TECHNIQUE: CT of the head without contrast. Using automated exposure control and adjustment of the mA and/or kV according to patient size, radiation dose was kept as low as reasonably achievable to ob tain optimal diagnostic quality images. DICOM format image data is available electronically for revi ew and comparison. FINDINGS: Cerebrum: The ventricles are normal for age. No evidence of midline shift, mass lesion, hemorrhage or acute infarction. No extraaxial fluid collections are seen. Posterior Fossa: The cerebellum and brainstem are intact. The 4th ventricle is midline. The cerebe llopontine angle is unremarkable. Extracranial: The visualized portion of the orbits is intact. Skull: The calvaria is intact. No evidence of skull fracture. CONCLUSION: 1. No acute findings. . Electronically signed by: Ruben Villa MD 07/03/2018 2:27 AM EDT
--- NOTE | 2018-07-03 02:34 | XR ---
EXAM DATE: 07/03/2018 2:31 AM EDT AGE/SEX: 67 years / Male INDICATIONS: Fall tonight and fall two days ago. CLINICAL DATA: This is the patient's initial encounter. Patient reports that signs and symptoms have been present for 1 day and indicates a pain score of 0/10. MEDICAL/SURGICAL HISTORY: Cardiovascular disease. Hypertension. Fusion, cervical. COMPAR[place] [facility] [place] 1[place] SINGLE AP, [place]/2018. . FINDINGS: A single AP view of the chest demonstrates the lungs to be symmetrically aerated without evidence of mass, infiltrate or effusion. The cardiomediastinal contours are unremarkable. Osseous structures a re intact. CONCLUSION: Negative examination. Electronically signed by: Ruben Villa MD 07/03/2018 2:32 AM EDT
--- NOTE | 2018-07-03 02:36 | CT ---
EXAM DATE: 07/03/2018 2:29 AM EDT AGE/SEX: 67 years / Male INDICATIONS: Trauma; fall. CLINICAL DATA: This is the patient's initial encounter. Patient reports that signs and symptoms have been present for 1 day and indicates a pain score of 4/10. MEDICAL/SURGICAL HISTORY: Hypertension. Fusion, cervical. RADIATION DOSE: 21.69 CTDI (mGy) COMPARISON: [facility] – [place], CT CERVICAL SPINE W/O CONTRAST, 07/01/2018. . TECHNIQUE: Contiguous axial images were obtained using helical multirow detector technique. The vol umetric data was post-processed with multiplanar reconstruction in oblique axial, sagittal, and coron al planes. Using automated exposure control and adjustment of the mA and/or kV according to patient s ize, radiation dose was kept as low as reasonably achievable to obtain optimal diagnostic quality monica ges. DICOM format image data is available electronically for review and comparison. FINDINGS: Comparison is July 01. Again seen is moderate to advanced degenerative disc disease. Previous fu rikki at C5-6 is stable. Bilateral facet arthropathy. Mild AP canal stenosis at C4-5. No prevertebral soft tissue swelling is present. CONCLUSION: 1. No acute fracture or spondylolisthesis. Previous fusion at C5-6. Electronically signed by: Ruben Villa MD 07/03/2018 2:35 AM EDT
--- NOTE | 2018-07-03 02:39 | XR ---
EXAM DATE: 07/03/2018 2:32 AM EDT AGE/SEX: 67 years / Male INDICATIONS: Fall tonight and fall two days ago. CLINICAL DATA: This is the patient's initial encounter. Patient reports that signs and symptoms have been present for 1 day and indicates a pain score of 0/10. MEDICAL/SURGICAL HISTORY: Cardiovascular disease. Hypertension. Fusion, cervical. COMPARISON: No prior exams available for comparison. FINDINGS: Examination of the pelvis demonstrates no evidence of fracture or dislocation. Bony mineralization i s normal. There is no widening of the sacroiliac joints. No foreign body is identified. CONCLUSION: No acute findings. Osteoarthritis of the bilateral hips. Electronically signed by: Ruben Villa MD 07/03/2018 2:37 AM EDT
--- NOTE | 2018-07-03 03:56 | XR ---
EXAM DATE: 07/03/2018 3:27 AM EDT AGE/SEX: 67 years / Male INDICATIONS: Nausea post fall. CLINICAL DATA: This is the patient's initial encounter. Patient reports that signs and symptoms have been present for 1 day and indicates a pain score of 0/10. MEDICAL/SURGICAL HISTORY: Cardiovascular disease. Hypertension. None. COMPARISON: . FINDINGS: Left lateral decubitus view of the abdomen demonstrates a normal bowel gas pattern. No free air is identified. No organomegaly is evident. Osseous structures are intact. CONCLUSION: No acute findings. No free free air. Electronically signed by: Ruben Villa MD 07/03/2018 3:54 AM EDT
--- NOTE | 2018-07-03 03:56 | XR ---
EXAM DATE: 07/03/2018 3:27 AM EDT AGE/SEX: 67 years / Male INDICATIONS: Nausea post fall. CLINICAL DATA: This is the patient's initial encounter. Patient reports that signs and symptoms have been present for 1 day and indicates a pain score of 0/10. MEDICAL/SURGICAL HISTORY: Cardiovascular disease. Hypertension. None. COMPARISON: [facility] – [place], ABDOMEN KUB ONLY, 06/19/2017. . FINDINGS: Examination of the abdomen demonstrates a mild ileus gas pattern. No free air is identified. No org anomegaly is evident. Osseous structures are intact. CONCLUSION: No acute findings. Mild ileus. Advanced degenerative change in the lumbar spine. Electronically signed by: Ruben Villa MD 07/03/2018 3:54 AM EDT
[2018-07-03] MEDS ORDERED: Acetaminophen 325 MG Tablet PO PRN (05:06)
[2018-07-03] MEDS ORDERED: Bisacodyl 10 MG Supp RECTAL PRN (05:06)
[2018-07-03] MEDS: Sod Chloride 0.9% Inj 1,000 ML IV.CONT SCH ×2 (05:30→15:10)
[2018-07-03] MEDS: Heparin - SQ 10,000 UNITS/ML Vial SQ SCH ×3 (06:00→21:00)
[2018-07-03 08:02] LABS: Bacteria,Urine Rare /hpf; Bilirubin,Urine Negative (Negative); Clarity,Urine Hazy (Clear); Color,Urine Yellow (Yellw/Straw); Glucose,Urine (UA) Negative (Negative); Hyaline Casts,Urine 10 /lpf (0-3); Leukocyte Esterase,Urine Trace (Negative); Nitrite,Urine Negative (Negative); Specific Gravity,Urine 1.019 (1.002-1.035); Squamous Epithelial Cell,Urine 1 /hpf (0-5)
[2018-07-03] MEDS ORDERED: Senna/Docusate Sodium 8.6/50 MG Tablet PO SCH (09:00)
--- NOTE | 2018-07-03 11:09 | P.HP ---
History of Present Illness Primary Care Physician: Anatoliy Her Chief Complaint: Frequent falls, elevated troponin I History of Present Illness: 67-year-old man for past surgical history of C5-C6 anterior interbody fusion with allograft 05/27/17, visited the emergency departments 3 times this week for evaluation of frequent falls, and unsteadiness without any loss of consciousness however with head trauma. During his previous 2 ED visit, patient was discharged home with home health care PT, blood return third time yesterday after again falling this time without any loss of consciousness but resulting to a trauma to his head. When patient presented to the ED, he had elevated troponin I however denies any chest pain and during my exam patient still denies any chest pain. Patient states he currently lives with a female friend but who is currently out of town and returning next week from [place]. - Diagnosis (1) Elevated troponin I level (2) Frequent falls Inpatient Certification: I certify that the inpatient services were ordered in accordance with Medicare regulations governing the order. This includes certification that hospital inpatient services are reasonable and necessary and in the case of services not specified as inpatient-only under 42 CFR 419.22(n), that they are appropriately provided as inpatient services in accordance to with the 2-midnight benchmark under 43 CFR 412.3(e) Estimated Total Length of Stay (Days): 2 Plans for Post Hospital Care: Not yet determined Review of Systems All other systems reviewed negative except as stated in [facility] - History History Provided By: Patient - Medical History Medical History: Medical History (Last Reviewed 07/03/18 @ 05:57 by Maico Andrade MD) Erectile dysfunction High blood pressure Metal plate in upper extremity - Surgical History Surgical History: Surgical History (Last Updated 07/03/18 @ 10:59 by Alfie Peacock MD) H/O discectomy - Family History Family History: Family History (Last Updated 07/03/18 @ 10:59 by Alfie Peacock MD) Other Lung cancer - Tobacco History Second Hand Smoke Exposure: No Tobacco Use In Past 30 Days: No Smoking Status: Never smoker - Alcohol History How Often Do You Have a Drink Containing Alcohol: Monthly or less - Substance Use History Substance History: Past History - Substance Use Type Marijuana Status: Early Remission Route Used: Inhalation Reason for Use: Calm Down, Feels Good, Sleep - Travel History Recent Travel in the [facility] Within the Last 8 Weeks: No Recent Travel Out of the Country Within the Last 8 Weeks: No - Immunization History Tetanus Immunization: Unsure Hx Influenza Vaccine This Season: No Medications and Allergies Active Medications: Active Medications Acetaminophen (Tylenol) 650 mg PO Q4H PRN PRN Reason: Temp > 100.4 Al Hydroxide/Mg Hydroxide (Milk Of Dunia Myles) 30 ml PO Q12H PRN PRN Reason: Mild Constipation Heparin Sodium (Porcine) (Heparin Inj) 5,000 units SQ Q8H [facility] Last Admin: 07/03/18 06:00 Dose: 5,000 units Sodium Chloride (Ns Inj) 1,000 mls @ 100 mls/hr IV.CONT .Q10H [facility] Last Admin: 07/03/18 05:30 Dose: 100 mls/hr Ondansetron HCl (Zofran Inj) 4 mg IV.PUSH Q6H PRN PRN Reason: NAUSEA OR VOMITING Sodium Chloride (Ns Flush) 2 ml IV.FLUSH PRN PRN PRN Reason: FLUSH AFTER USING IV ACCESS Allergies Allergy/AdvReac Type Severity Reaction Status Date / Time No Known Allergies Allergy Verified 07/03/18 01:48 Home Medications Medication Instructions Recorded Confirmed Type ascorbic acid (vitamin C) [Vitamin 1,000 mg PO DAILY 07/01/18 07/03/18 History C] bupropion HCl [Wellbutrin XL] 300 mg PO QAM 07/01/18 07/03/18 History cholecalciferol (vitamin D3) 1,000 unit PO DAILY 07/01/18 07/03/18 History [Vitamin D3] cholecalciferol (vitamin D3) 1,000 unit PO DAILY 07/01/18 07/03/18 History [Vitamin D3] ferrous sulfate [Iron (ferrous 65 mg PO DAILY 07/01/18 07/03/18 History sulfate)] finasteride 5 mg PO DAILY 07/01/18 07/03/18 History hydrochlorothiazide 25 mg PO DAILY 07/01/18 07/03/18 History lisinopril 40 mg PO DAILY 07/01/18 07/03/18 History meloxicam 15 mg PO DAILY 07/01/18 07/03/18 History polyethylene glycol 3350 [Miralax] 1 g/kg PO DAILY 07/01/18 07/03/18 History tamsulosin 0.4 mg PO DAILY 07/01/18 07/03/18 History vit B complex-folic acid [B 1 tab PO DAILY 07/01/18 07/03/18 History Complex 100] vitamin E 400 unit PO DAILY 07/01/18 07/03/18 History Exam Vital signs: Vital Signs 07/03/18 01:40 07/03/18 05:06 07/03/18 08:00 Temperature 98.1 F 97.7 F Pulse Rate 66 70 74 Respiratory Rate 16 15 16 Blood Pressure 166/91 H 122/79 113/65 Pulse Oximetry 95 98 95 Intake & Output 07/02/18 07/03/18 07/03/18 18:59 06:59 18:59 Intake Total 1000 / 1000 Balance 1000 / 1000 Weight 81.647 kg 81.647 kg Intake: IV 1000 / 1000 NS Inj 1,000 ML @ 1000 mls/hr 1000 / 1000 IV.CONT .Q1H [facility] Rx#:[id number] Other: Weight On Admission 81.647 kg Narrative: GENERAL: NAD SKIN: Warm and dry. HEAD: Atraumatic. Normocephalic. Couple bruises EYES: Pupils equal and round. No scleral icterus. No injection or drainage. ENT: No nasal bleeding or discharge. Mucous membranes pink and moist. NECK: Trachea midline. No JVD. CARDIOVASCULAR: Regular rate and rhythm. RESPIRATORY: No accessory muscle use. Clear to auscultation. Breath sounds equal bilaterally. GASTROINTESTINAL: Abdomen soft, non-tender, nondistended. Hepatic and splenic margins not palpable. MUSCULOSKELETAL: Extremities without clubbing, cyanosis, or edema. No obvious deformities. NEUROLOGICAL: Awake and alert. No obvious cranial nerve deficits. Motor grossly within normal limits. Five out of 5 muscle strength in the arms and legs. Normal speech. PSYCHIATRIC: Appropriate mood and affect; insight and judgment normal. Results - Labs CBC & Chem 7: 07/03/18 01:43 Labs: Laboratory Results - last 24 hr 07/03/18 07/03/18 07/03/18 01:43 01:43 01:43 WBC 23.4 H RBC 5.17 Hgb 16.9 D Hct 49.3 MCV 95.4 MCH 32.6 MCHC 34.2 RDW 13.2 Plt Count 260 MPV 7.2 Neut % (Auto) 88.2 H Lymph % (Auto) 5.0 L [place] % (Auto) 6.6 Eos % (Auto) 0.0 Baso % (Auto) 0.2 Neut # (Auto) 20.7 H Lymph # (Auto) 1.2 [place] # (Auto) 1.5 H Eos # (Auto) 0.0 Baso # (Auto) 0.1 WBC Differential . Differential Comment Auto diff final PT 10.5 INR 1.0 Troponin I 0.09 H Urine Color Urine Clarity Urine pH Ur Specific [place] Urine Protein Urine Glucose (UA) Urine Ketones Urine Occult Blood Urine Nitrate Urine Bilirubin Urine Urobilinogen Ur Leukocyte Esterase Urine RBC Urine WBC Ur Squamous Epith Cells Urine Bacteria Hyaline Casts Micro UA Comment Ur Microscopic Review Urine Culture Comments Serum Alcohol Less than 3 07/03/18 07:30 WBC RBC Hgb Hct MCV MCH MCHC RDW Plt Count MPV Neut % (Auto) Lymph % (Auto) [place] % (Auto) Eos % (Auto) Baso % (Auto) Neut # (Auto) Lymph # (Auto) [place] # (Auto) Eos # (Auto) Baso # (Auto) WBC Differential Differential Comment PT INR Troponin I Urine Color Yellow Urine Clarity Hazy H Urine pH 5.0 Ur Specific [place] 1.019 Urine Protein Negative Urine Glucose (UA) Negative Urine Ketones 20 Urine Occult Blood Negative Urine Nitrate Negative Urine Bilirubin Negative Urine Urobilinogen Less than 2 Ur Leukocyte Esterase Trace H Urine RBC 1 Urine WBC 3 Ur Squamous Epith Cells 1 Urine Bacteria Rare H Hyaline Casts 10 Micro UA Comment Culture not ind Ur Microscopic Review Not Reportable Urine Culture Comments Culture not ind Serum Alcohol - Imaging Impressions Cervical Spine CT 07/03/18 01:35 CONCLUSION: 1. No acute fracture or spondylolisthesis. Previous fusion at C5-6. Head CT 07/03/18 01:35 CONCLUSION: 1. No acute findings. . Chest X-Ray 07/03/18 01:36 CONCLUSION: Negative examination. Pelvis X-Ray 07/03/18 01:36 CONCLUSION: No acute findings. Osteoarthritis of the bilateral hips. Abdomen X-Ray 07/03/18 02:52 CONCLUSION: No acute findings. Mild ileus. Advanced degenerative change in the lumbar spine. Abdomen X-Ray 07/03/18 02:52 CONCLUSION: No acute findings. No free free air. Caprini VTE Risk Assessment Caprini VTE Risk Assessment: Moderate/High Risk (score >= 2) Caprini Risk Assessment Model: Point Value = 1 Point Value = 2 Point Value = 3 Point Value = 5 Age 41-60 Minor surgery BMI > 25 kg/m2 Swollen legs Varicose veins or History of unexplained or recurrent spontaneous Oral contraceptives or hormone replacement Sepsis (< 1 month) Serious lung disease, including pneumonia (< 1 month) Abnormal pulmonary function Acute myocardial infarction Congestive heart failure (< 1 month) History of inflammatory bowel disease Medical patient at bed rest Age 61-74 Arthroscopic surgery Major open surgery (> 45 min) Laparoscopic surgery (> 45 min) Malignancy Confined to bed (> 72 hours) Immobilizing plaster cast Central venous access Age >= 75 History of VTE Family history of VTE Factor V Leiden Prothrombin [id number] Lupus anticoagulant Anticardiolipin antibodies Elevated serum homocysteine Heparin-induced thrombocytopenia Other congenital or acquired thrombophilia Stroke (< 1 month) Elective arthroplasty Hip, pelvis, or leg fracture Acute spinal cord injury (< 1 month) Prophylaxis Regimen: Total Risk Factor Score Risk Level Prophylaxis Regimen 0-1 Low Early ambulation 2 Moderate Order ONE of the following: *Sequential Compression Device (SCD) *Heparin 5000 units SQ BID 3-4 Higher Order ONE of the following medications: *Heparin 5000 units SQ TID *Enoxaparin/Lovenox 40 mg SQ daily (WT < 150 kg, CrCl > 30 mL/min) *Enoxaparin/Lovenox 30 mg SQ daily (WT < 150 kg, CrCl > 10-29 mL/min) *Enoxaparin/Lovenox 30 mg SQ BID (WT < 150 kg, CrCl > 30 mL/min) AND/OR *Sequential Compression Device (SCD) 5 or more Highest Order ONE of the following medications: *Heparin 5000 units SQ TID (Preferred with Epidurals) *Enoxaparin/Lovenox 40 mg SQ daily (WT < 150 kg, CrCl > 30 mL/min) *Enoxaparin/Lovenox 30 mg SQ daily (WT < 150 kg, CrCl > 10-29 mL/min) *Enoxaparin/Lovenox 30 mg SQ BID (WT < 150 kg, CrCl > 30 mL/min) AND *Sequential Compression Device (SCD) Assessment and Plan - Assessment (1) Elevated troponin I level Code(s): R74.8 - Abnormal levels of other serum enzymes Status: Acute (2) Frequent falls Code(s): R29.6 - Repeated falls Status: Acute - Plan 67-year-old man with Frequent fall, head trauma post fall All imaging studies reviewed and negative Check orthostatic BP Check carotid ultrasound and consider 2D echo Fall precautions PT consult to treat and eval Elevated troponin I Unlikely ACS, however will rule out per protocol with serial cardiac enzyme and EKGs Check creatinine kinase Leukocytosis Stress reactive, chest x-ray negative. Check UA Monitor CBC manager it security consult for discharge disposition
[2018-07-03 13:33] LABS: Troponin I 0.16 ng/mL (0.02-0.05)
[2018-07-03] MEDS: buPROPion 150 MG 12 HR Tablet PO SCH ×2 (13:47→20:53)
[2018-07-03 13:48] LABS: Creatine Kinase MB 21.5 ng/mL (0.5-3.6)
[2018-07-03 14:41] LABS: Troponin I 0.17 ng/mL (0.02-0.05)
[2018-07-03 14:44] LABS: CKMB Percent 1.4 % (0.0-4.0); Creatine Kinase MB 19.4 ng/mL (0.5-3.6)
--- NOTE | 2018-07-03 15:29 | US ---
EXAM DATE: 07/03/2018 3:05 PM EDT AGE/SEX: 67 years / Male INDICATIONS: Weakness. Frequent falling. CLINICAL DATA: This is the patient's initial encounter. Patient reports that signs and symptoms have been present for 1 day and indicates a pain score of 0/10. MEDICAL/SURGICAL HISTORY: Hypertension. Erectile dysfunction. . Metal plate upper extremity. C 5-C6 anterior interbody fusion. COMPARISON: [facility], US ECHOCARDIOGRAM, 12/09/2017. . VELOCITY PARAMETERS: ICA/CCA Ratio: Right 1.0 , Left 0.64 ICA: Right 146 cm/sec, Left 76 cm/sec CCA: Right 146 cm/sec, Left 117 cm/sec ECA: Right 84 cm/sec, Left 96 cm/sec Vertebral: Right 66 cm/sec antegrade, Left 79 cm/sec antegrade FINDINGS: Right Carotid: Mild arteriosclerotic plaque is visualized. Mild elevated velocity without evidence f or hemodynamically significant stenosis. Left Carotid: Mild arteriosclerotic plaque is visualized. The waveforms are within normal limits. Other: None. CONCLUSION: 1. Right Internal Carotid Artery: Findings indicate <50% stenosis. 2. Left Internal Carotid Artery: Findings indicate <50% stenosis. Electronically signed by: Amos Rubio MD 07/03/2018 3:28 PM EDT
--- NOTE | 2018-07-03 23:23 | MB ---
cc: Jhoan Escobedo DO DATE: 07/03/2018 REASON FOR CONSULTATION: Elevated troponin. HISTORY OF PRESENT ILLNESS: Rip Chairez is a pleasant 67-year-old male who presented to [facility] Emergency Room after a fall. Apparently, he has been in the emergency room 3 times this week due to frequent falls and unsteady gait. He denies any loss of consciousness, but has had some trauma to his face with abrasions. In speaking to him, he states that he has no chest pain or shortness of breath. During the episodes, he does not get lightheaded, but just feels that he has an unsteady gait and inability to walk around without falling. The night before being admitted, he fell and laid on the ground for 3-4 hours before someone was able to come find him. Apparently, he lives with a female friend who is currently out of town and said no one was around at that time to help him up. During his workup, he was found to have an elevated creatinine kinase as well as a mildly elevated troponin. PAST MEDICAL HISTORY: 1. Hypertension. 2. Erectile dysfunction. 3. Gait dysfunction. 4. Depression/anxiety. 5. Chronic benzodiazepine use. 6. Benign prostatic hypertrophy. 7. Bladder diverticulum. PAST SURGICAL HISTORY: 1. TURP. 2. C5-C6 anterior interbody fusion with allograft (05/27/2018. 3. Diskectomy. ALLERGIES: NO KNOWN DRUG ALLERGIES. MEDICATIONS: 1. Meloxicam 15 mg daily. 2. Lisinopril 40 mg daily. 3. Iron 65 mg daily. 4. Flomax 0.4 mg daily. 5. Finasteride 5 mg daily. 6. Wellbutrin XL 300 mg daily. 7. Hydrochlorothiazide 25 mg daily. FAMILY HISTORY: Denies premature coronary artery disease or sudden cardiac within the family. SOCIAL HISTORY: The patient denies alcohol or tobacco abuse. He does admit to marijuana use. REVIEW OF SYSTEMS: Fourteen systems were reviewed including osteopathic. Pertinent positives and negatives above, otherwise negative. PHYSICAL EXAMINATION: VITAL SIGNS: Temperature 98.1, heart rate 84, blood pressure 127/74, respirations 18, pulse oximetry 97% on room air. GENERAL: The patient appears well, in no acute distress, alert, awake and oriented x3. HEENT: Extraocular muscles intact. Multiple abrasions across his face and head. Mucous membranes moist. NECK: Supple. No JVD at 45 degrees. No carotid bruits heard bilaterally. Carotid upstroke is brisk in nature. HEART: Regular rate and rhythm. Positive first and second heart sounds with a 1/6 holosystolic murmur noted at the apex. LUNGS: Clear to auscultation bilaterally. No wheezes, rales or rhonchi. ABDOMEN: Soft, nontender, nondistended. No organomegaly noted. EXTREMITIES: Show no clubbing, cyanosis or edema. Femoral and distal pulses are intact bilaterally. NEUROLOGIC: No focal deficits. SKIN: Warm, dry and intact. OSTEOPATHIC: No kyphoscoliosis or lordosis. LABORATORY DATA: Hemoglobin 16.9, hematocrit 49.3, platelets 260. Creatinine kinase 2191, troponin 0.71. Electrocardiogram (07/03/2018 at 1539): Possible ectopic rhythm, right bundle branch block. IMPRESSION: 1. Elevated troponin, most likely type 2 due to rhabdomyolysis. 2. Rhabdomyolysis secondary to lying on the floor for 3-4 hours after a fall. 3. Frequent falls. 4. Gait dysfunction. 5. History of hypertension. RECOMMENDATIONS: 1. Rip Chairez presented after a number of falls this week, which appear to be due to gait dysfunction. No episodes of syncope or lightheadedness during the episodes. 2. He does have a minimally elevated troponin, but this is type 2 due to significant elevation of his creatinine kinase from lying on the floor. He denies chest pain or shortness of breath and his EKG shows no significant changes within the ST-T wave segments. 3. We will check a 2-D echo to look at his overall left ventricular function, cardiac structure and possible valvulopathies. 4. He should be evaluated by physical therapy. 5. As his elevated troponin is type 2 in nature, no plan for ischemic workup. Thank you for allowing me to see Rip Chairez. If there are any questions, please do not hesitate to call. Jhoan Escobedo DO VGP/ns , 10:12 PM , 10:26 PM
[2018-07-04] MEDS: Sod Chloride 0.9% Inj 1,000 ML IV.CONT SCH ×2 (00:18→13:54)
[2018-07-04] MEDS: Heparin - SQ 10,000 UNITS/ML Vial SQ SCH ×2 (05:52→13:49)
[2018-07-04 07:25] LABS: Baso % (Auto) 0.2 % (0.0-2.0); Eos # (Auto) 0.1 th/mm3 (0.0-0.4); Eos % (Auto) 0.7 % (0.0-4.0); Hematocrit 34.7 % (39.0-51.0); Hemoglobin 12.1 gm/dL (13.0-17.0); Lymph # (Auto) 2.7 th/mm3 (1.0-4.8); Lymph % (Auto) 19.3 % (9.0-44.0); Mean Corpuscular HGB Conc 34.9 % (32.0-36.0); Mean Corpuscular Hemoglobin 32.7 pg (27.0-34.0); Mean Corpuscular Volume 93.7 fL (80.0-100.0); Mean Platelet Volume 7.3 fL (7.0-11.0); Mono # (Auto) 1.3 th/mm3 (0.0-0.9); Mono % (Auto) 9.5 % (0.0-8.0); Neut % (Auto) 70.3 % (16.0-70.0); Platelet Count 193 th/mm3 (150-450); Red Blood Count 3.71 mil/mm3 (4.50-5.90); Red Cell Distribution Width 13.2 % (11.6-17.2); White Blood Count 14.2 th/mm3 (4.0-11.0)
[2018-07-04 07:47] LABS: Anion Gap 10 meq/L (5-15); Blood Urea Nitrogen 25 mg/dL (7-18); Calcium 8.3 mg/dL (8.5-10.1); Carbon Dioxide 23.1 meq/L (21.0-32.0); Chloride 99 meq/L (98-107); Glomerular Filtration Rate Greater Than 89 mL/min (>89); Glucose,Random 86 mg/dL (74-106); Potassium 3.4 meq/L (3.5-5.1); Sodium 132 meq/L (136-145)
--- NOTE | 2018-07-04 07:56 | ECG ---
Date Performed: 07/03/2018 Time Performed: 15:39:06 PTAGE: 67 years EKG: ECTOPIC ATRIAL RHYTHM RIGHT BUNDLE BRANCH BLOCK ABNORMAL ECG Since the PREVIOUS TRACING , no significant change noted PREVIOUS TRACIN07/01/2018 22.12 DOCTOR: Didier Marshall Interpretating Date/Time 07/04/2018 07:53:57
[2018-07-04 08:39] VITALS: RESP 18; O2SAT 97
[2018-07-04] MEDS ORDERED: hydroCHLOROthiazide 25 MG Tablet PO SCH (09:00)
[2018-07-04] MEDS ORDERED: Lisinopril 20 MG Tablet PO SCH (09:00)
[2018-07-04] MEDS ORDERED: Finasteride 5 MG Tablet PO SCH (09:00)
[2018-07-04] MEDS ORDERED: Ferrous Sulfate 325 MG Tablet PO SCH (09:00)
[2018-07-04] MEDS: buPROPion 150 MG 12 HR Tablet PO SCH (10:05)
--- NOTE | 2018-07-04 11:37 | P.PN ---
Subjective Interval history: Follow-up recurrent falls/elevated troponin I/rhabdomyolysis July 04, 2018-patient seen and examined, denies any chest pain, shortness of breath. Case discussed with plate molder. ACS ruled out and no evidence of ischemia. 2D echo report pending. CK trending up however patient denies any muscle pain. Physical Exam Vital signs: Vital Signs 07/03/18 12:00 07/03/18 14:49 07/03/18 16:00 Temperature 98.3 F 98.1 F Pulse Rate 71 84 Respiratory Rate 16 18 Blood Pressure 161/82 H 127/74 Pulse Oximetry 95 95 97 07/03/18 20:00 07/04/18 00:00 07/04/18 04:00 Temperature 97.9 F 98.4 F 98.5 F Pulse Rate 74 70 71 Respiratory Rate 16 16 17 Blood Pressure 117/60 119/69 105/68 Pulse Oximetry 96 98 98 07/04/18 08:00 Temperature 97.9 F Pulse Rate 87 Respiratory Rate 18 Blood Pressure 116/76 Pulse Oximetry 97 Intake & Output 07/03/18 07/04/18 07/04/18 18:59 06:59 18:59 Intake Total 1480 / 1480 1000 / 1000 Balance 1480 / 1480 1000 / 1000 Weight 81.647 kg 81.6 kg Intake: IV 1000 / 1000 1000 / 1000 NS Inj 1,000 ML @ 100 mls/hr IV 1000 / 1000 1000 / 1000 .CONT .Q10H [facility] Rx#:[id number] Oral 480 / 480 Other: # Voids 2 3 Date of Last Bowel Movement 07/03/18 07/03/18 07/04/18 # Bowel Movements 1 Weight On Admission 81.647 kg Narrative: GENERAL: NAD SKIN: Warm and dry. HEAD: Normocephalic. Bruises to the face EYES: No scleral icterus. No injection or drainage. NECK: Supple, trachea midline. No JVD or lymphadenopathy. CARDIOVASCULAR: Regular rate and rhythm without murmurs, gallops, or rubs. RESPIRATORY: Breath sounds equal bilaterally. No accessory muscle use. GASTROINTESTINAL: Abdomen soft, non-tender, nondistended. MUSCULOSKELETAL: No cyanosis, or edema. BACK: Nontender without obvious deformity. No CVA tenderness. Results - Labs CBC & Chem 7: 07/04/18 05:46 07/04/18 05:46 Laboratory Results - last 24 hr 07/03/18 07/03/18 07/03/18 01:43 12:40 13:50 WBC RBC Hgb Hct MCV MCH MCHC RDW Plt Count MPV Neut % (Auto) Lymph % (Auto) [place] % (Auto) Eos % (Auto) Baso % (Auto) Neut # (Auto) Lymph # (Auto) [place] # (Auto) Eos # (Auto) Baso # (Auto) WBC Differential Differential Comment Sodium Potassium Chloride Carbon Dioxide Anion Gap BUN Creatinine Estimated GFR POC Glucose Random Glucose Calcium Total Creatine Kinase 1352 H 2238 H 2191 H CK-MB (CK-2) 19.4 H 21.5 H CK-MB (CK-2) % 1.4 1.0 Troponin I 0.16 H 0.17 H 07/03/18 07/04/18 07/04/18 16:19 05:46 05:46 WBC 14.2 H RBC 3.71 L Hgb 12.1 L D Hct 34.7 L MCV 93.7 MCH 32.7 MCHC 34.9 RDW 13.2 Plt Count 193 MPV 7.3 Neut % (Auto) 70.3 H Lymph % (Auto) 19.3 [place] % (Auto) 9.5 H Eos % (Auto) 0.7 Baso % (Auto) 0.2 Neut # (Auto) 10.0 H Lymph # (Auto) 2.7 [place] # (Auto) 1.3 H Eos # (Auto) 0.1 Baso # (Auto) 0.0 WBC Differential . Differential Comment Auto diff final Sodium 132 L Potassium 3.4 L Chloride 99 Carbon Dioxide 23.1 Anion Gap 10 BUN 25 H Creatinine 0.83 Estimated GFR Greater than 89 POC Glucose 99 Random Glucose 86 Calcium 8.3 L Total Creatine Kinase CK-MB (CK-2) CK-MB (CK-2) % Troponin I - Imaging Impressions Carotid Doppler Study 07/03/18 00:00 CONCLUSION: 1. Right Internal Carotid Artery: Findings indicate <50% stenosis. 2. Left Internal Carotid Artery: Findings indicate <50% stenosis. - Procedures none Assessment and Plan - Assessment (1) Elevated troponin I level Code(s): R74.8 - Abnormal levels of other serum enzymes Status: Acute (2) Frequent falls Code(s): R29.6 - Repeated falls Status: Acute (3) Rhabdomyolysis Code(s): M62.82 - Rhabdomyolysis Status: Acute - Plan 67-year-old man with Frequent fall, head trauma status post mechanical fall All imaging studies reviewed and negative Bilateral carotid Doppler with less than 50% stenosis Fall precautions PT to treat and eval Elevated troponin I Unlikely ACS Elevated troponin I likely due to rhabdomyolysis Appreciate input from cardiology pending report from 2D echo Leukocytosis-improving Stress reactive,. UA negative Monitor CBC Rhabdomyolysis Continue with IV fluid hydration Monitor CK Hypokalemia Replace electrolytes with K supplement now and monitor Discharge patient to home Condition on discharge: Improved Regular Diet as tolerated Ad Elvira activity Rx written:see EMR Follow-up with primary care physician
[2018-07-04 12:23] VITALS: TEMP 98
--- NOTE | 2018-07-04 12:58 | P.PNCA ---
Subjective Interval history: No events overnight Physical Exam Vital signs: Vital Signs 07/03/18 14:49 07/03/18 16:00 07/03/18 20:00 Temperature 98.1 F 97.9 F Pulse Rate 84 74 Respiratory Rate 18 16 Blood Pressure 127/74 117/60 Pulse Oximetry 95 97 96 07/04/18 00:00 07/04/18 04:00 07/04/18 08:00 Temperature 98.4 F 98.5 F 97.9 F Pulse Rate 70 71 87 Respiratory Rate 16 17 18 Blood Pressure 119/69 105/68 116/76 Pulse Oximetry 98 98 97 07/04/18 12:00 Temperature 98 F Pulse Rate 69 Respiratory Rate 18 Blood Pressure 103/60 Pulse Oximetry 97 Intake & Output 07/03/18 07/04/18 07/04/18 18:59 06:59 18:59 Intake Total 1480 / 1480 1000 / 1000 Balance 1480 / 1480 1000 / 1000 Weight 81.647 kg 81.6 kg Intake: IV 1000 / 1000 1000 / 1000 NS Inj 1,000 ML @ 100 mls/hr IV 1000 / 1000 1000 / 1000 .CONT .Q10H [facility] Rx#:[id number] Oral 480 / 480 Other: # Voids 2 3 Date of Last Bowel Movement 07/03/18 07/03/18 07/04/18 # Bowel Movements 1 Weight On Admission 81.647 kg Narrative: GENERAL: NAD SKIN: Warm and dry. HEAD: Normocephalic. Bruises to the face EYES: No scleral icterus. No injection or drainage. NECK: Supple, trachea midline. No JVD or lymphadenopathy. CARDIOVASCULAR: Regular rate and rhythm without murmurs, gallops, or rubs. RESPIRATORY: Breath sounds equal bilaterally. No accessory muscle use. GASTROINTESTINAL: Abdomen soft, non-tender, nondistended. MUSCULOSKELETAL: No cyanosis, or edema. BACK: Nontender without obvious deformity. No CVA tenderness. Assessment and Plan - Assessment (1) Unsteadiness on feet Code(s): R26.81 - Unsteadiness on feet Status: Acute (2) Rhabdomyolysis Code(s): M62.82 - Rhabdomyolysis Status: Acute (3) Elevated troponin I level Code(s): R74.8 - Abnormal levels of other serum enzymes Status: Acute - Plan 1) Frequent falls No syncope Appears to be unsteady gate 2) Rhabdomyolysis from laying on the floor for 3-4 hours 3) Elevated trop Type 2 due to elevated CKs No further work up 4) 2D echo pending 5) PT evaluation 6) No further cardiovascular work up Will see PRN, call with questions
--- NOTE | 2018-07-04 13:01 | ECHRPT ---
Indication: Chest Pain CONCLUSIONS Normal left ventricular size. Wall thickness is normal. The left ventricular systolic function is low normal with an estimated ejection fraction in the rang e of 50- 55%. Trace mitral valve regurgitation. Aortic valve sclerosis is present. Trace aortic valve regurgitation. There is trace tricuspid valve regurgitation. The estimated pulmonary arterial pressure is 40 mmHg. BP: / HR: Rhythm: MEASUREMENTS (Male / Female) Normal Values Technical Quality:Fair 2D ECHO LV Diastolic Diameter PLAX 3.9 cm 4.2 - 5.9 / 3.9 - 5.3 cm LV Systolic Diameter PLAX 2.8 cm IVS Diastolic Thickness 1.1 cm 0.6 - 1.0 / 0.6 - 0.9 cm LVPW Diastolic Thickness 1.1 cm 0.6 - 1.0 / 0.6 - 0.9 cm LV Relative Wall Thickness 0.6 RV Internal Dim ED PLAX 3.6 cm LVOT Diameter 2.0 cm Aortic Root Diameter 3.0 cm LA Systolic Diameter LX 2.9 cm 3.0 - 4.0 / 2.7 - 3.8 cm DOPPLER AV Peak Velocity 163.0 cm/s AV Peak Gradient 10.6 mmHg AI Peak Velocity 466.5 cm/s AI Peak Gradient 87.0 mmHg AI Pressure Half Time 669.5 ms LVOT Peak Velocity 143.0 cm/s LVOT Peak Gradient 8.2 mmHg AV Area Cont Eq pk 2.8 cm Mitral E Point Velocity 59.2 cm/s Mitral A Point Velocity 83.9 cm/s Mitral E to A Ratio 0.7 LV E' Lateral Velocity 13.5 cm/s Mitral E to LV E' Lateral Ratio 4.4 LV E' Septal Velocity 7.4 cm/s Mitral E to LV E' Septal Ratio 8.0 TR Peak Velocity 275.0 cm/s TR Peak Gradient 30.3 mmHg Right Atrial Pressure 10.0 mmHg Pulmonary Artery Systolic Pressu 40.3 mmHg Right Ventricular Systolic Press 40.3 mmHg FINDINGS LEFT VENTRICLE Normal left ventricular size. Wall thickness is normal. The left ventricular systolic function is low normal with an estimated ejection fraction in the rang e of 50- 55%. RIGHT VENTRICLE Normal right ventricular size and systolic function. LEFT ATRIUM The left atrial size is normal. RIGHT ATRIUM The right atrial size is normal. ATRIAL SEPTUM Normal atrial septal thickness without atrial level shunting by limited color doppler interrogation. AORTA The aortic root and proximal ascending aorta are normal in size on limited imaging. MITRAL VALVE Trace mitral valve regurgitation. AORTIC VALVE Trileaflet aortic valve. Aortic valve sclerosis is present. Trace aortic valve regurgitation. TRICUSPID VALVE There is trace tricuspid valve regurgitation. The estimated pulmonary arterial pressure is 40 mmHg. PULMONARY VALVE No pulmonary valve regurgitation or stenosis. VESSELS The inferior vena cava is normal in size. PERICARDIUM No pericardial effusion. Terry Ascencio MD (Electronically Signed) Final Date:04 July 2018 12:59
[2018-07-04 15:56] VITALS: BP 119/58; PULSE 68
== END 2018-07-04 18:07 ==
LOC: NEPC 01:28 → NEDA 05:08 → N06 07:50
PROVIDERS: ADMIT Hospitalist; ATTEND Hospitalist